=== PATIENT | male | born 1965 | race Caucasian/White ===

== ENCOUNTER 2018-04-24 11:49 | Emergency (ER) | payer MEDICARE, MEDICAID ==
[~2018-04-24 11:49] MED LIST: ACYC-1 PO; AZIT-1 PO; HYDR-653 PO; HYDR2TAB74 PO; IBUP800T37 PO; LOR5/325 PO; METH-543 PO; NO ROUTINE MEDS; ONDA4TAB PO; OXYC-865 PO; PRED-1 PO; PROM-110 PO; TERB250T63 PO; ZOLP-1 PO; [UNRECOGNIZED DRUG - CODE] TP
--- NOTE | 2018-04-24 12:05 | ER Report ---
History and Physical Time Seen By MD: 12:02 Hx. of Stated Complaint: GOING THROUG WITH DRAWAL HPI/ROS CHIEF COMPLAINT: Alcohol detox HISTORY OF PRESENT ILLNESS: This is a 53-year-old male who presents to the emergency department for alcohol detox. Patient states that he's had a long history of alcohol consumption however over the last 3 years he's been drinking up to 12 shooters of 100 proof alcohol daily. Patient states that his last drink was yesterday morning, he is having shakes, severe epigastric and chest pain. Intermittent nausea no vomiting. Patient has never sought treatment before, he is considering treatment now. He states that "this is got a stop", patient states that he is ready to stop drinking is very tearful while I'm talking to him. He's been taking baking soda daily to help with the epigastric pain, however over the last couple of days his been very severe. No fevers or chills. No diarrhea. No rashes. No headaches. REVIEW OF SYSTEMS: Constitutional: No fever, no chills. Eyes: No discharge. ENT: No sore throat. Cardiovascular: As above. Respiratory: No cough, no shortness of breath. Gastrointestinal: As above. Genitourinary: No hematuria. Musculoskeletal: No back pain. Skin: No rashes. Neurological: No headache. Allergies: Coded Allergies: Sulfa (Sulfonamide Antibiotics) (Verified Allergy, Severe, HIVES AND THROAT CLOSES, 04/24/18) Home Meds Active Scripts Pantoprazole Sodium (PANTOPRAZOLE SODIUM) 40 Mg Tablet.dr, 40 MG PO QDAY, #30 TAB.SR Prov:ELISHA HORTA [facility] 04/24/18 Lorazepam (ATIVAN) 0.5 Mg Tablet, 0.5 MG PO Q4-6H, #12 TAB 0 Refills Prov:ELISHA HORTA [facility] 04/24/18 Sucralfate (CARAFATE) 1 Gm Tablet, 1 GM PO QID, #60 TAB 0 Refills Take before meals and at bedtime. Crush the tablet and mix with water before taking. Prov:ELISHA HORTA [facility] 04/24/18 Reported Medications Lisinopril (LISINOPRIL) 10 Mg Tablet, 10 MG PO QDAY, TAB 04/24/18 Discontinued Scripts Ondansetron (ZOFRAN ODT) 4 Mg Tab.rapdis, 4 MG PO Q6H PRN for NAUSEA/VOMITING, #20 TAB.TING 0 Refills Prov:PA FRENCH MD 08/11/16 Hydrocodone Bit/Acetaminophen (HYDROCODON-ACETAMINOPHEN 5-325) 1 Each Tablet, 1 EACH PO Q4H PRN for PAIN, #12 TAB 0 Refills Prov:PA FRENCH MD 08/11/16 Past Medical/Surgical History The patient has a past medical and surgical history of hypertension, smokes, pne umonia, TB exposure, GERD, arthritis, wears glasses, anxiety, depression, hernia repair, excision of a cyst on the right hand, left shoulder surgery. Alcoholism. Reviewed Nurses Notes: Yes Hx Smoking: Yes (1.5 PPD X 30 YRS ) Smoking Status: Heavy Tobacco Smoker Exposure to Second Hand Smoke?: Yes Hx Substance Use Disorder: No Hx Alcohol Use: Yes Constitutional Vital Sign - Last 24 Hours 04/24/18 04/24/18 04/24/18 04/24/18 11:49 12:01 12:01 12:19 Temp 97.8 Pulse 65 65 74 Resp 18 14 16 B/P (MAP) 159/113 (128) 159/113 Pulse Ox 92 95 89 04/24/18 04/24/18 04/24/18 04/24/18 12:47 12:49 13:00 13:19 Pulse 55 67 Resp 10 14 B/P (MAP) 145/103 (117) 152/101 (118) Pulse Ox 90 90 04/24/18 04/24/18 04/24/18 04/24/18 13:30 13:35 14:05 14:11 Pulse 56 58 Resp 8 17 B/P (MAP) 151/98 (115) 151/98 (115) Pulse Ox 90 90 04/24/18 04/24/18 04/24/18 14:16 14:30 14:46 Pulse 98 80 Resp 12 15 B/P (MAP) 155/95 (115) Physical Exam General Appearance: The patient is alert, has no immediate need for airway protection and no signs of toxicity, large tremors, while I'm in the exam room patient suddenly stands up grabbing his chest saying that he has severe acid reflux. Eyes: Pupils equal and round no pallor or injection. ENT, Mouth: Mucous membranes are moist. Respiratory: There are no retractions, lungs are clear to auscultation. Cardiovascular: Regular rate and rhythm, no murmurs, clicks or rubs. Gastrointestinal: Abdomen is soft, discomfort to the epigastrium, no masses, bowel sounds normal. Neurological: Alert and oriented 4. Moving all extremities. Following all commands. No focal neuro deficits. Skin: Warm and dry, no rashes. Musculoskeletal: Neck is supple non tender. Extremities are nontender, nonswollen and have full range of motion. DIFFERENTIAL DIAGNOSIS: After history and physical exam differential diagnosis was considered for chest pain including but not limited to myocardial ischemia, anxiety, alcohol detox, pericarditis pulmonary embolus, chest wall pain, pleural inflammation and pulmonary infectious causes. Medical Decision Making Data Points Result Diagram: 04/24/18 1234 04/24/18 1234 Laboratory Hematology Test 04/24/18 12:34 04/24/18 14:13 Red Blood Count 5.07 M/uL (4.00-5.60) Mean Corpuscular Volume 99.0 fL (80.0-96.0) Mean Corpuscular Hemoglobin 34.5 pg (26.0-33.0) Mean Corpuscular Hemoglobin Concent 34.8 g/dL (32.0-36.0) Red Cell Distribution Width 14.3 % (11.5-14.5) Mean Platelet Volume 7.3 fL (7.2-11.1) Neutrophils (%) (Auto) 80.0 % (39.4-72.5) Lymphocytes (%) (Auto) 11.1 % (17.6-49.6) Monocytes (%) (Auto) 8.3 % (4.1-12.4) Eosinophils (%) (Auto) 0.2 % (0.4-6.7) Basophils (%) (Auto) 0.4 % (0.3-1.4) Nucleated RBC Relative Count (auto) 0.0 /100WBC Neutrophils # (Auto) 5.8 K/uL (2.0-7.4) Lymphocytes # (Auto) 0.8 K/uL (1.3-3.6) Monocytes # (Auto) 0.6 K/uL (0.3-1.0) Eosinophils # (Auto) 0.0 K/uL (0.0-0.5) Basophils # (Auto) 0.0 K/uL (0.0-0.1) Nucleated RBC Absolute Count (auto) 0.00 K/uL Sodium Level 137 mmol/L (137-145) Potassium Level 3.2 mmol/L (3.5-5.0) Chloride Level 99 mmol/L (98-107) Carbon Dioxide Level 31 mmol/L (22-30) Blood Urea Nitrogen 8 mg/dl (9-21) Creatinine 0.70 mg/dl (0.66-1.25) Glomerular Filtration Rate Calc > 60.0 Random Glucose 105 mg/dl (75-110) Calcium Level 9.2 mg/dl (8.4-10.2) Magnesium Level 1.4 mg/dl (1.7-2.2) Total Bilirubin 1.4 mg/dl (0.2-1.3) Aspartate Amino Transf (AST/SGOT) 68 U/L (0-35) Alanine Aminotransferase (ALT/SGPT) 62 U/L (0-56) Alkaline Phosphatase 64 U/L (0-126) Troponin I < 0.012 ng/ml Total Protein 7.4 g/dl (6.3-8.2) Albumin 4.3 g/dl (3.5-5.0) Thyroid Stimulating Hormone (TSH) 2.24 uIU/ml (0.46-4.68) Salicylates Level 13 mg/L Salicylate Last Dose Date unk Acetaminophen Level < 10 ug/ml Serum Alcohol < 10 mg/dl Urine Color Yellow Urine Clarity Clear Urine pH 8.0 pH (4.8-9.5) Urine Specific [place] 1.012 Urine Protein 30 mg/dL (NEGATIVE) Urine Glucose (UA) Negative mg/dL (NEGATIVE) Urine Ketones 20 mg/dL (NEGATIVE) Urine Blood Negative (NEGATIVE) Urine Nitrite Negative (NEGATIVE) Urine Bilirubin Negative (NEGATIVE) Urine Urobilinogen Negative mg/dL (0.2-1.9) Urine Leukocyte Esterase Negative (NEGATIVE) Urine RBC 1 /HPF (0-2/HPF) Urine WBC <1 /HPF (0-5/HPF) Urine Squamous Epithelial Cells None /LPF (</=FEW) Urine Bacteria Negative /HPF (NONE-FEW) Urine Mucus None /HPF (NONE-FEW) Urine Opiates Screen Negative Urine Barbiturates Screen Negative Ur Tricyclic Antidepressants Screen Negative Urine Phencyclidine Screen Negative Urine Amphetamines Screen Negative Urine Benzodiazepines Screen Negative Urine Cocaine Screen Negative Urine Cannabinoids Screen Positive Chemistry Test 04/24/18 12:34 04/24/18 14:13 White Blood Count 7.3 k/uL (4.5-11.0) Red Blood Count 5.07 M/uL (4.00-5.60) Hemoglobin 17.5 g/dL (14.0-18.0) Hematocrit 50.2 % (42.0-52.0) Mean Corpuscular Volume 99.0 fL (80.0-96.0) Mean Corpuscular Hemoglobin 34.5 pg (26.0-33.0) Mean Corpuscular Hemoglobin Concent 34.8 g/dL (32.0-36.0) Red Cell Distribution Width 14.3 % (11.5-14.5) Platelet Count 179 K/uL (150-450) Mean Platelet Volume 7.3 fL (7.2-11.1) Neutrophils (%) (Auto) 80.0 % (39.4-72.5) Lymphocytes (%) (Auto) 11.1 % (17.6-49.6) Monocytes (%) (Auto) 8.3 % (4.1-12.4) Eosinophils (%) (Auto) 0.2 % (0.4-6.7) Basophils (%) (Auto) 0.4 % (0.3-1.4) Nucleated RBC Relative Count (auto) 0.0 /100WBC Neutrophils # (Auto) 5.8 K/uL (2.0-7.4) Lymphocytes # (Auto) 0.8 K/uL (1.3-3.6) Monocytes # (Auto) 0.6 K/uL (0.3-1.0) Eosinophils # (Auto) 0.0 K/uL (0.0-0.5) Basophils # (Auto) 0.0 K/uL (0.0-0.1) Nucleated RBC Absolute Count (auto) 0.00 K/uL Glomerular Filtration Rate Calc > 60.0 Calcium Level 9.2 mg/dl (8.4-10.2) Magnesium Level 1.4 mg/dl (1.7-2.2) Total Bilirubin 1.4 mg/dl (0.2-1.3) Aspartate Amino Transf (AST/SGOT) 68 U/L (0-35) Alanine Aminotransferase (ALT/SGPT) 62 U/L (0-56) Alkaline Phosphatase 64 U/L (0-126) Troponin I < 0.012 ng/ml Total Protein 7.4 g/dl (6.3-8.2) Albumin 4.3 g/dl (3.5-5.0) Thyroid Stimulating Hormone (TSH) 2.24 uIU/ml (0.46-4.68) Salicylates Level 13 mg/L Salicylate Last Dose Date unk Acetaminophen Level < 10 ug/ml Serum Alcohol < 10 mg/dl Urine Color Yellow Urine Clarity Clear Urine pH 8.0 pH (4.8-9.5) Urine Specific [place] 1.012 Urine Protein 30 mg/dL (NEGATIVE) Urine Glucose (UA) Negative mg/dL (NEGATIVE) Urine Ketones 20 mg/dL (NEGATIVE) Urine Blood Negative (NEGATIVE) Urine Nitrite Negative (NEGATIVE) Urine Bilirubin Negative (NEGATIVE) Urine Urobilinogen Negative mg/dL (0.2-1.9) Urine Leukocyte Esterase Negative (NEGATIVE) Urine RBC 1 /HPF (0-2/HPF) Urine WBC <1 /HPF (0-5/HPF) Urine Squamous Epithelial Cells None /LPF (</=FEW) Urine Bacteria Negative /HPF (NONE-FEW) Urine Mucus None /HPF (NONE-FEW) Urine Opiates Screen Negative Urine Barbiturates Screen Negative Ur Tricyclic Antidepressants Screen Negative Urine Phencyclidine Screen Negative Urine Amphetamines Screen Negative Urine Benzodiazepines Screen Negative Urine Cocaine Screen Negative Urine Cannabinoids Screen Positive Toxicology Test 04/24/18 12:34 04/24/18 14:13 Salicylates Level 13 mg/L Salicylate Last Dose Date unk Acetaminophen Level < 10 ug/ml Serum Alcohol < 10 mg/dl Urine Opiates Screen Negative Urine Barbiturates Screen Negative Ur Tricyclic Antidepressants Screen Negative Urine Phencyclidine Screen Negative Urine Amphetamines Screen Negative Urine Benzodiazepines Screen Negative Urine Cocaine Screen Negative Urine Cannabinoids Screen Positive Urinalysis Test 04/24/18 14:13 Urine Color Yellow Urine Clarity Clear Urine pH 8.0 pH (4.8-9.5) Urine Specific [place] 1.012 Urine Protein 30 mg/dL (NEGATIVE) Urine Glucose (UA) Negative mg/dL (NEGATIVE) Urine Ketones 20 mg/dL (NEGATIVE) Urine Blood Negative (NEGATIVE) Urine Nitrite Negative (NEGATIVE) Urine Bilirubin Negative (NEGATIVE) Urine Urobilinogen Negative mg/dL (0.2-1.9) Urine Leukocyte Esterase Negative (NEGATIVE) Urine RBC 1 /HPF (0-2/HPF) Urine WBC <1 /HPF (0-5/HPF) Urine Squamous Epithelial Cells None /LPF (</=FEW) Urine Bacteria Negative /HPF (NONE-FEW) Urine Mucus None /HPF (NONE-FEW) EKG/Imaging EKG Interpretation 12 lead EKG: Time of EKG 1239. Rhythm: Normal sinus rhythm, ventricular rate 63 bpm. [place]: normal QRS: normal ST segments: No ST depression or elevation identified. No significant changes from the 04/11/2016 EKG. Imaging Location: [facility] [place] Patient: Jonnie Junior : 1965 Visit/Account:[id number] Date of Sevice: 04/24/2018 CHEST SINGLE AP Indication: chest pain Comparison: Chest x-ray 10/26/2015 Findings: Lungs: Clear. Mediastinum/pulmonary vasculature: Heart size and pulmonary vasculature are normal. Bones/soft tissues: Normal. IMPRESSION: Clear lungs. Report Dictated By: Kj Gonzalez at 04/24/2018 1:15 PM Report E-Signed By: Kj Gonzalez at 04/24/2018 1:16 PM [id number] ED Course/Re-evaluation Clinical Indication for ER IV: Hydration, IV Access ED Course The patient was admitted to a room. A history of physical obtained. Differential diagnoses were considered. An IV was started. A CBC, CMP, psych panel, UA and tox screen were obtained. A banana bag was given. Patient was given 2 mg IV Ativan, 40 mg IV Protonix, and a GI cocktail. CBC showing MCV 99, MCH 34.5, chemistry showing potassium 3.2, magnesium 1.4, AST 68, ALT 62. Negative troponin. Negative tox screen, negative urine. Negative serum alcohol. EKG showing normal sinus rhythm, negative chest x-ray. On the patient tonight had a couple of lengthy discussions on going to the behavioral health unit, my recommendation was to go to the unit, they could provide him with some counseling services as well as help with medication should he have any withdrawal symptoms. I did have a psychology tech come down and speak with the patient as well, ultimately the patient elected not to go to the behavioral health unit. He was not suicidal or homicidal. I did strongly recommend the patient follows up with counseling services and his primary care provider as soon as possible. Patient was also given sucralfate, Ativan to use as needed, very short-term, as well as Protonix. I did recommend that the patient follows up with Dr. Rothman at some point for a discussion on and upper endoscopy looking for ulcers. The patient exposed understanding and was discharged home. Patient states he is feeling much better at this time. No other questions or concerns. Decision to Disposition Date: Apr 24, 2018 Decision to Disposition Time: 14:48 Depart Departure Latest Vital Signs Vital Signs Date Time Temp Pulse Resp B/P (MAP) Pulse Ox O2 Delivery O2 Flow Rate FiO2 04/24/18 14:46 80 15 04/24/18 14:30 155/95 (115) 04/24/18 14:05 90 04/24/18 12:01 97.8 Impression: Primary Impression: Acute epigastric pain Additional Impression: Alcohol abuse Condition: Improved Disposition: HOME OR SELF-CARE Referrals: VON NICHOLSON (PCP) GEORGE HALL MD [facility] Pantoprazole Sodium (PANTOPRAZOLE SODIUM) 40 Mg Tablet. 40 MG PO QDAY, #30 TAB.SR Prov: [facility] 04/24/18 Lorazepam (ATIVAN) 0.5 Mg Tablet 0.5 MG PO Q4-6H, #12 TAB 0 Refills Prov: [facility] 04/24/18 Sucralfate (CARAFATE) 1 Gm Tablet 1 GM PO QID, #60 TAB 0 Refills Take before meals and at bedtime. Crush the tablet and mix with water before taking. Prov: [facility] 04/24/18 Patient Instructions: Abuse of Alcohol (ED), Alcohol Dependence (GEN), Alcohol Withdrawal (DC) Additional Instructions: Please take the information that was provided to you by the Behavioral health tech and follow up with a counselor within 1-3 days for reevaluation and custodial treatment of your alcohol dependence. If you feel that you are unable to manage your withdrawal symptoms and anxiety at home, please return to the ED for reevaluation. Drink plenty of water. Get plenty of rest. Avoid any sort of acholic drink. Take the Carafate for possible ulcerations due to chronic alcohol consumption, ,this is only short term, for custodial treatment and definitive diagnosis and possible endoscopy, please follow up with Dr. Hall. Take the Ativan as needed for withdrawal symptoms, BUT you cannot mix with alcohol. Follow up with your PCP within one week for reevaluation. Problem Qualifiers ELISHA HORTA [facility] Apr 24, 2018 12:05
[2018-04-24] MEDS ORDERED: THIAMINE HCL(*) 200 MG/2 ML IN 100 MG, FOLIC ACID(*) 50 MG/10 ML INJ 1 MG, MULTIVITAMIN... IV ONE (12:16)
[2018-04-24] MEDS ORDERED: PANTOPRAZOLE SOD 40 MG IV VIAL IVP ONE (12:20)
[2018-04-24] MEDS ORDERED: MAG HYD/AL HYD/SIMETH 30ML UDC PO ONE (12:20)
[2018-04-24] MEDS ORDERED: LORazepam 2 MG/ML VIAL IVP ONE (12:20)
[2018-04-24] MEDS ORDERED: LIDOCAINE 2% VISC SLN 15ML UDC PO ONE (12:20)
--- NOTE | 2018-04-24 12:48 | EKG ---
[place] [facility] [place] NAME: SANGEETA LEWIS : [id number] MR: [id number] V: [id number] EXAM DATE: ORDERING PHYSICIAN: ELISHA HORTA TECHNOLOGIST: KEENAN Joseph Reason : ETOH Blood Pressure : / mmHG Vent. Rate : 063 BPM Atrial Rate : 063 BPM P-R Int : 144 ms QRS Dur : 078 ms QT Int : 472 ms P-R-T Axes : 028 039 043 degrees QTc Int : 483 ms Sinus rhythm No acute appearing ST-T findings Prolonged QT Abnormal ECG Confirmed by CECILE BURGESS ([id number]) on 04/24/2018 4:06:52 PM Referred By: Confirmed By:CECILE BURGESS
[2018-04-24 12:55] LABS: PLATELET COUNT, AUTOMATED 179 K/uL (150-450)
--- NOTE | 2018-04-24 13:23 | RADIOLOGY IMAGING REPORT ---
FACILITY: [facility] - [place] PATIENT NAME: Jonnie Junior : 1965 MR: [id number] V: [id number] EXAM DATE: ORDERING PHYSICIAN: ELISHA HORTA TECHNOLOGIST: [place] [facility] [place]: Jonnie Junior : 1965 Visit/Account:[id number] Date of Sevice: 04/24/2018 CHEST SINGLE AP Indication: chest pain Comparison: Chest x-ray 10/26/2015 Findings: Lungs: Clear. Mediastinum/pulmonary vasculature: Heart size and pulmonary vasculature are normal. Bones/soft tissues: Normal. IMPRESSION: Clear lungs. Report Dictated By: Kj Gonzalez at 04/24/2018 1:15 PM Report E-Signed By: Kj Gonzalez at 04/24/2018 1:16 PM [id number]
[2018-04-24] MEDS ORDERED: LISI-362 PO (14:20)
[2018-04-24 14:30] VITALS: BP 155/95
[2018-04-24] MEDS ORDERED: PANT40TA65 PO (14:42)
[2018-04-24] MEDS ORDERED: SUCR1TAB85 PO (14:42)
[2018-04-24] MEDS ORDERED: LORA-1455 PO (14:42)
== END 2018-04-24 15:18 | disposition home or self-care (01) ==
LOC: ER 11:58
DX: R10.13 Epigastric pain (principal); F10.20 Alcohol dependence, uncomplicated
CPT/HCPCS: 71045; 80305; 81001; 83735; 84443; 84484; 85025; 93005; 96365; 96366; 96375; 99284; A9270; C9113; G0480; J2060; J3411; J3475; J7030; 80320; 80329; 82040; 82247; 82310; 82374; 82435; 82565; 82947; 84075; 84132; 84155; 84295; 84450; 84460; 84520

== ENCOUNTER 2018-04-27 14:14 | Emergency (ER) | payer MEDICARE, MEDICAID ==
[~2018-04-27 14:14] MED LIST changes: +LISI-362 PO; +LORA-1455 PO; +PANT40TA65 PO; +SUCR1TAB85 PO
--- NOTE | 2018-04-27 14:18 | ER Report ---
History and Physical Time Seen By MD: 14:17 HPI/ROS CHIEF COMPLAINT: Alcohol detox HISTORY OF PRESENT ILLNESS: This is a 53-year-old male who presents to the emergency department for alcohol detox. The patient was in the emergency department 3 days ago pushing to detox, we did provide him with medications to his IV which did seem to calm him down, helps with his shakes and his epigastric pain. Ultimately he decided at that point he would like to go home and try to follow up with the information was provided. He states he was unable to do so. States Monday he had several shooters of 100 proof alcohol in addition to this he had about a pint of vodka. When he woke the next day he states he did not feel very well MY decided that he wanted to come back to the ER for admission to the behavioral health unit to help him with alcohol detox. Patient arrives alert and oriented, interacting well. Heart rate in the 120s, he is shaky, cheeks are flushed. He denies fevers or chills. No hallucinations. No chest pain or shortness of breath. He does however have this underlying epigastric pain that he's had for quite some time secondary to alcohol consumption. REVIEW OF SYSTEMS: Constitutional: No fever, no chills. Eyes: No discharge. ENT: No sore throat. Cardiovascular: No chest pain, no palpitations. Respiratory: No cough, no shortness of breath. Gastrointestinal: As above. Genitourinary: No hematuria. Musculoskeletal: No back pain. Skin: No rashes. Neurological: No headache. Psych: As above. Allergies: Coded Allergies: Sulfa (Sulfonamide Antibiotics) (Verified Allergy, Severe, HIVES AND THROAT CLOSES, 04/27/18) Home Meds Active Scripts Pantoprazole Sodium (PANTOPRAZOLE SODIUM) 40 Mg Tablet.dr, 40 MG PO QDAY, #30 TAB.SR Prov:ELISHA HORTA-USMAN 04/24/18 Lorazepam (ATIVAN) 0.5 Mg Tablet, 0.5 MG PO Q4-6H, #12 TAB 0 Refills Prov:ELISHA HORTA 04/24/18 Sucralfate (CARAFATE) 1 Gm Tablet, 1 GM PO QID, #60 TAB 0 Refills Take before meals and at bedtime. Crush the tablet and mix with water before taking. Prov:ELISHA HORTA [employer]OMIST-BC 04/24/18 Reported Medications Lisinopril (LISINOPRIL) 10 Mg Tablet, 10 MG PO QDAY, TAB 04/24/18 Discontinued Scripts Ondansetron (ZOFRAN ODT) 4 Mg Tab.rapdis, 4 MG PO Q6H PRN for NAUSEA/VOMITING, #20 TAB.TING 0 Refills Prov:PA FRENCH MD 08/11/16 Hydrocodone Bit/Acetaminophen (HYDROCODON-ACETAMINOPHEN 5-325) 1 Each Tablet, 1 EACH PO Q4H PRN for PAIN, #12 TAB 0 Refills Prov:PA FRENCH MD 08/11/16 Past Medical/Surgical History The patient has a past medical and surgical history of hypertension, smokes, pneumonia, TB exposure, GERD, arthritis, wears glasses, anxiety, depression, hernia repair, excision of a cyst on the right hand, left shoulder surgery. Alcoholism. Reviewed Nurses Notes: Yes Hx Smoking: Yes (1.5 PPD X 30 YRS ) Smoking Status: Heavy Tobacco Smoker Exposure to Second Hand Smoke?: Yes Hx Substance Use Disorder: No Hx Alcohol Use: Yes Constitutional Vital Sign - Last 24 Hours 04/27/18 04/27/18 04/27/18 04/27/18 14:14 14:20 14:21 14:30 Temp 99.1 Pulse 127 120 Resp 11 B/P (MAP) 148/104 (119) 148/104 142/88 (106) Pulse Ox 89 90 O2 Delivery Room Air 04/27/18 04/27/18 04/27/18 04/27/18 14:44 15:00 15:05 15:29 Pulse 112 103 B/P (MAP) 141/101 (114) 144/101 (115) Pulse Ox 93 92 04/27/18 04/27/18 04/27/18 04/27/18 15:35 15:40 16:00 16:10 Pulse 101 93 105 B/P (MAP) 143/100 (114) Pulse Ox 91 91 92 04/27/18 04/27/18 16:15 17:14 Pulse 97 100 Resp 14 B/P (MAP) 144/99 (114) Pulse Ox 90 90 O2 Delivery Room Air Physical Exam General Appearance: The patient is alert, has no immediate need for airway protection and no signs of toxicity, shaky. Eyes: Pupils equal and round no pallor or injection. ENT, Mouth: Mucous membranes are moist. Respiratory: There are no retractions, lungs are clear to auscultation. Cardiovascular: Regular rate and rhythm. Gastrointestinal: Abdomen is soft and non tender, no masses, bowel sounds normal. Neurological: Alert and oriented 4. Moving all extremities. Following all commands. No focal neuro deficits. Skin: Warm and dry, no rashes. Cheeks are flushed. Musculoskeletal: Neck is supple non tender. Extremities are nontender, nonswollen and have full range of motion. DIFFERENTIAL DIAGNOSIS: After history and physical exam differential diagnosis was considered for alcohol detox. Medical Decision Making Data Points Result Diagram: 04/27/18 1439 04/27/18 1439 Laboratory Hematology Test 04/27/18 14:39 04/27/18 15:06 04/27/18 15:30 Red Blood Count 4.99 M/uL (4.00-5.60) Mean Corpuscular Volume 98.8 fL (80.0-96.0) Mean Corpuscular Hemoglobin 34.2 pg (26.0-33.0) Mean Corpuscular Hemoglobin Concent 34.7 g/dL (32.0-36.0) Red Cell Distribution Width 14.1 % (11.5-14.5) Mean Platelet Volume 6.9 fL (7.2-11.1) Neutrophils (%) (Auto) 81.7 % (39.4-72.5) Lymphocytes (%) (Auto) 8.1 % (17.6-49.6) Monocytes (%) (Auto) 8.9 % (4.1-12.4) Eosinophils (%) (Auto) 0.4 % (0.4-6.7) Basophils (%) (Auto) 0.9 % (0.3-1.4) Nucleated RBC Relative Count (auto) 0.1 /100WBC Neutrophils # (Auto) 6.8 K/uL (2.0-7.4) Lymphocytes # (Auto) 0.7 K/uL (1.3-3.6) Monocytes # (Auto) 0.7 K/uL (0.3-1.0) Eosinophils # (Auto) 0.0 K/uL (0.0-0.5) Basophils # (Auto) 0.1 K/uL (0.0-0.1) Nucleated RBC Absolute Count (auto) 0.01 K/uL Sodium Level 135 mmol/L (137-145) Potassium Level 3.3 mmol/L (3.5-5.0) Chloride Level 97 mmol/L (98-107) Carbon Dioxide Level 29 mmol/L (22-30) Blood Urea Nitrogen 19 mg/dl (9-21) Creatinine 0.90 mg/dl (0.66-1.25) Glomerular Filtration Rate Calc > 60.0 Random Glucose 112 mg/dl (75-110) Calcium Level 8.6 mg/dl (8.4-10.2) Magnesium Level 1.7 mg/dl (1.7-2.2) Total Bilirubin 1.5 mg/dl (0.2-1.3) Aspartate Amino Transf (AST/SGOT) 55 U/L (0-35) Alanine Aminotransferase (ALT/SGPT) 69 U/L (0-56) Alkaline Phosphatase 53 U/L (0-126) Total Protein 6.2 g/dl (6.3-8.2) Albumin 3.5 g/dl (3.5-5.0) Salicylates Level < 10 mg/L Salicylate Last Dose Date unk Acetaminophen Level < 10 ug/ml Serum Alcohol < 10 mg/dl Urine Color Arina Urine Clarity Slightly-cloudy Urine pH 5.0 pH (4.8-9.5) Urine Specific Hayden 1.026 Urine Protein 30 mg/dL (NEGATIVE) Urine Glucose (UA) Negative mg/dL (NEGATIVE) Urine Ketones 20 mg/dL (NEGATIVE) Urine Blood Moderate (NEGATIVE) Urine Nitrite Negative (NEGATIVE) Urine Bilirubin Negative (NEGATIVE) Urine Urobilinogen 2.0 mg/dL (0.2-1.9) Urine Leukocyte Esterase Negative (NEGATIVE) Urine RBC 9 /HPF (0-2/HPF) Urine WBC 2 /HPF (0-5/HPF) Urine Squamous Epithelial Cells Few /LPF (</=FEW) Urine Bacteria Negative /HPF (NONE-FEW) Urine Hyaline Casts Few /LPF (NONE-FEW) Urine Mucus Few /HPF (NONE-FEW) Urine Opiates Screen Negative Urine Barbiturates Screen Negative Ur Tricyclic Antidepressants Screen Negative Urine Phencyclidine Screen Negative Urine Amphetamines Screen Negative Urine Benzodiazepines Screen Positive Urine Cocaine Screen Negative Urine Cannabinoids Screen Positive Chemistry Test 04/27/18 14:39 04/27/18 15:06 04/27/18 15:30 White Blood Count 8.3 k/uL (4.5-11.0) Red Blood Count 4.99 M/uL (4.00-5.60) Hemoglobin 17.1 g/dL (14.0-18.0) Hematocrit 49.3 % (42.0-52.0) Mean Corpuscular Volume 98.8 fL (80.0-96.0) Mean Corpuscular Hemoglobin 34.2 pg (26.0-33.0) Mean Corpuscular Hemoglobin Concent 34.7 g/dL (32.0-36.0) Red Cell Distribution Width 14.1 % (11.5-14.5) Platelet Count 155 K/uL (150-450) Mean Platelet Volume 6.9 fL (7.2-11.1) Neutrophils (%) (Auto) 81.7 % (39.4-72.5) Lymphocytes (%) (Auto) 8.1 % (17.6-49.6) Monocytes (%) (Auto) 8.9 % (4.1-12.4) Eosinophils (%) (Auto) 0.4 % (0.4-6.7) Basophils (%) (Auto) 0.9 % (0.3-1.4) Nucleated RBC Relative Count (auto) 0.1 /100WBC Neutrophils # (Auto) 6.8 K/uL (2.0-7.4) Lymphocytes # (Auto) 0.7 K/uL (1.3-3.6) Monocytes # (Auto) 0.7 K/uL (0.3-1.0) Eosinophils # (Auto) 0.0 K/uL (0.0-0.5) Basophils # (Auto) 0.1 K/uL (0.0-0.1) Nucleated RBC Absolute Count (auto) 0.01 K/uL Glomerular Filtration Rate Calc > 60.0 Calcium Level 8.6 mg/dl (8.4-10.2) Magnesium Level 1.7 mg/dl (1.7-2.2) Total Bilirubin 1.5 mg/dl (0.2-1.3) Aspartate Amino Transf (AST/SGOT) 55 U/L (0-35) Alanine Aminotransferase (ALT/SGPT) 69 U/L (0-56) Alkaline Phosphatase 53 U/L (0-126) Total Protein 6.2 g/dl (6.3-8.2) Albumin 3.5 g/dl (3.5-5.0) Salicylates Level < 10 mg/L Salicylate Last Dose Date unk Acetaminophen Level < 10 ug/ml Serum Alcohol < 10 mg/dl Urine Color Arina Urine Clarity Slightly-cloudy Urine pH 5.0 pH (4.8-9.5) Urine Specific Hayden 1.026 Urine Protein 30 mg/dL (NEGATIVE) Urine Glucose (UA) Negative mg/dL (NEGATIVE) Urine Ketones 20 mg/dL (NEGATIVE) Urine Blood Moderate (NEGATIVE) Urine Nitrite Negative (NEGATIVE) Urine Bilirubin Negative (NEGATIVE) Urine Urobilinogen 2.0 mg/dL (0.2-1.9) Urine Leukocyte Esterase Negative (NEGATIVE) Urine RBC 9 /HPF (0-2/HPF) Urine WBC 2 /HPF (0-5/HPF) Urine Squamous Epithelial Cells Few /LPF (</=FEW) Urine Bacteria Negative /HPF (NONE-FEW) Urine Hyaline Casts Few /LPF (NONE-FEW) Urine Mucus Few /HPF (NONE-FEW) Urine Opiates Screen Negative Urine Barbiturates Screen Negative Ur Tricyclic Antidepressants Screen Negative Urine Phencyclidine Screen Negative Urine Amphetamines Screen Negative Urine Benzodiazepines Screen Positive Urine Cocaine Screen Negative Urine Cannabinoids Screen Positive Toxicology Test 04/27/18 14:39 04/27/18 15:30 Salicylates Level < 10 mg/L Salicylate Last Dose Date unk Acetaminophen Level < 10 ug/ml Serum Alcohol < 10 mg/dl Urine Opiates Screen Negative Urine Barbiturates Screen Negative Ur Tricyclic Antidepressants Screen Negative Urine Phencyclidine Screen Negative Urine Amphetamines Screen Negative Urine Benzodiazepines Screen Positive Urine Cocaine Screen Negative Urine Cannabinoids Screen Positive Urinalysis Test 04/27/18 15:30 Urine Color Arina Urine Clarity Slightly-cloudy Urine pH 5.0 pH (4.8-9.5) Urine Specific Hayden 1.026 Urine Protein 30 mg/dL (NEGATIVE) Urine Glucose (UA) Negative mg/dL (NEGATIVE) Urine Ketones 20 mg/dL (NEGATIVE) Urine Blood Moderate (NEGATIVE) Urine Nitrite Negative (NEGATIVE) Urine Bilirubin Negative (NEGATIVE) Urine Urobilinogen 2.0 mg/dL (0.2-1.9) Urine Leukocyte Esterase Negative (NEGATIVE) Urine RBC 9 /HPF (0-2/HPF) Urine WBC 2 /HPF (0-5/HPF) Urine Squamous Epithelial Cells Few /LPF (</=FEW) Urine Bacteria Negative /HPF (NONE-FEW) Urine Hyaline Casts Few /LPF (NONE-FEW) Urine Mucus Few /HPF (NONE-FEW) ED Course/Re-evaluation Clinical Indication for ER IV: Hydration, IV Access ED Course The patient was admitted to a room. A history and physical were obtained. Differential diagnoses were considered. An IV was started. A CBC, CMP and psych panel were collected. A UA and tox screen were collected. A banana bag was given. 0.5 IV Ativan was given. A GI cocktail. And 40 mg by mouth Protonix.MCV 98.8, MCH 34.2, percent neutrophils 81.7, sodium 135, potassium 3.3, AST 55, ALT 69, positive for cannabis, positive for benzos however this is probably after the Ativan was given, UA showing concentrated urine, with ketones and protein otherwise unremarkable. I did speak with Dr. Badillo from the behavioral health unit, he is accepted the patient into his unit for detox. Patient has R he signed in voluntarily, has changed into his scrubs. Patient is agreeable with this plan of care. No other questions or concerns at this time. 04/27/2018 4:00:11 pm I did speak with Dr. Badillo, he's accepted the patient into his services, patient will be admitted to the behavioral health unit for alcohol detox. Decision to Disposition Date: Apr 27, 2018 Decision to Disposition Time: 16:00 Depart Departure Latest Vital Signs Vital Signs Date Time Temp Pulse Resp B/P (MAP) Pulse Ox O2 Delivery O2 Flow Rate FiO2 04/27/18 17:14 100 14 144/99 (114) 90 Room Air 04/27/18 14:21 99.1 Impression: Primary Impression: Alcohol abuse Additional Impression: Alcoholic gastritis Condition: Improved Disposition: XFER TO [facility] Referrals: VON NICHOLSON (PCP) Problem Qualifiers Additional Impression: Alcoholic gastritis Chronicity: chronic Gastritis bleeding: without bleeding Qualified Codes: K29.20 - Alcoholic gastritis without bleeding ELISHA HORTA [facility]- Apr 27, 2018 14:18
[2018-04-27] MEDS ORDERED: THIAMINE HCL(*) 200 MG/2 ML IN 100 MG, FOLIC ACID(*) 50 MG/10 ML INJ 1 MG, MULTIVITAMIN... IV ONE (14:30)
[2018-04-27] MEDS ORDERED: LORazepam 2 MG/ML VIAL IVP ONE (14:30)
[2018-04-27 14:50] LABS: PLATELET COUNT, AUTOMATED 155 K/uL (150-450)
[2018-04-27] MEDS ORDERED: LIDOCAINE 2% VISC SLN 15ML UDC PO ONE (15:00)
[2018-04-27] MEDS ORDERED: MAG HYD/AL HYD/SIMETH 30ML UDC PO ONE (15:00)
[2018-04-27] MEDS ORDERED: PANTOPRAZOLE SOD 40 MG TABEC PO ONE (16:10)
[2018-04-27 17:14] VITALS: BP 144/99
[2018-04-28] MEDS ORDERED: VALA500T63 PO (05:29)
[2018-04-28] MEDS ORDERED: AMLO-111 PO (05:29)
== END 2018-04-27 17:15 ==
LOC: ER 14:20
DX: F10.20 Alcohol dependence, uncomplicated (principal); F12.10 Cannabis abuse, uncomplicated; K29.20 Alcoholic gastritis without bleeding
CPT/HCPCS: 36415; 80305; 81001; 83735; 84443; 85025; 96365; 96366; 96375; 99284; A9270; G0480; J2060; J3411; J7030; 80320; 80329; 82040; 82247; 82310; 82374; 82435; 82565; 82947; 84075; 84132; 84155; 84295; 84450; 84460; 84520

== ENCOUNTER 2018-04-27 16:52 | Inpatient (IN) | payer MEDICARE, MEDICAID ==
[~2018-04-27] VITALS: Ht 185.4 cm; Wt 99.8 kg
[2018-04-27] MEDS ORDERED: MAG HYD/AL HYD/SIMETH 30ML UDC PO PRN (17:15)
[2018-04-27] MEDS ORDERED: NICOTINE POLACRILEX 2 MG GUM PO PRN (17:15)
[2018-04-27 17:28] VITALS: BP 148/100
[2018-04-27] MEDS: DIAZEPAM 10 MG TAB PO PRN (17:44)
[2018-04-27 19:50] VITALS: BP 148/92
[2018-04-28 01:51] VITALS: BP 148/104
[2018-04-28] MEDS: NICOTINE 21 MG/24 HR PATCH TD SCH ×2 (02:02→08:31)
[2018-04-28] MEDS: DIAZEPAM 10 MG TAB PO PRN ×4 (02:02→21:03)
[2018-04-28] MEDS ORDERED: AMLO-111 PO (05:29)
[2018-04-28] MEDS ORDERED: VALA500T63 PO (05:29)
[2018-04-28 06:43] VITALS: BP 128/102
[2018-04-28] MEDS: PANTOPRAZOLE SOD 40 MG TABEC PO SCH (08:30)
[2018-04-28] MEDS: THIAMINE HCL 100 MG TAB PO SCH (08:30)
[2018-04-28] MEDS: MULTIVITAMINS TAB PO SCH (08:31)
[2018-04-28] MEDS: FOLIC ACID 1 MG TAB PO SCH (08:31)
[2018-04-28] MEDS: amLODIPine BESYL(*) 5 MG TAB PO SCH (08:31)
[2018-04-28] MEDS ORDERED: valACYclovir HCL 500 MG TAB PO SCH (09:00)
[2018-04-28 09:55] VITALS: BP 154/96
[2018-04-28] MEDS ORDERED: INFLUENZA VIRUS VAC 0.5ML SYR IM ONLY ONE (11:35)
[2018-04-28 16:31] VITALS: BP 152/102
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
[2018-04-28 21:48] VITALS: BP 148/98
[2018-04-29 03:58] VITALS: BP 130/96
[2018-04-29] MEDS: PANTOPRAZOLE SOD 40 MG TABEC PO SCH (08:10)
[2018-04-29] MEDS: THIAMINE HCL 100 MG TAB PO SCH (08:10)
[2018-04-29] MEDS: amLODIPine BESYL(*) 5 MG TAB PO SCH (08:10)
[2018-04-29] MEDS: FOLIC ACID 1 MG TAB PO SCH (08:10)
[2018-04-29] MEDS: MULTIVITAMINS TAB PO SCH (08:11)
[2018-04-29] MEDS: DIAZEPAM 10 MG TAB PO PRN (08:11)
[2018-04-29] MEDS: NICOTINE 21 MG/24 HR PATCH TD SCH (08:13)
[2018-04-29 08:35] VITALS: BP 142/98
[2018-04-29] MEDS ORDERED: valACYclovir HCL 500 MG TAB PO SCH (09:00)
[2018-04-29] MEDS ORDERED: FOLI-68 PO (09:42)
[2018-04-29] MEDS ORDERED: AMLO-101 PO (09:43)
[2018-04-29] MEDS ORDERED: NICO-218 TD (09:43)
[2018-04-29] MEDS ORDERED: MULT-859 PO (09:44)
[2018-04-29] MEDS ORDERED: THIA100T62 PO (09:44)
--- NOTE | 2018-04-30 03:51 | SCHAAF DISCHARGE ---
DATE OF ADMISSION: April 27, 2018 DATE OF DISCHARGE: April 29, 2018 ATTENDING PHYSICIAN Giovanni Badillo MD Patient was seen at approximately 0830 hours on 29 April 2018 for note concerning this dictation. FINAL DIAGNOSES 1. Alcohol withdrawal, considered complete. 2. Alcohol use disorder, severe. 3. Social stressors related to alcohol use. 4. History of anxiety and depression per patient. REASON FOR ADMISSION This is a cooperative 53-year-old male admitted voluntarily for alcohol withdrawal. Patient notably was seen on April 24, 2018, in emergency room and was attempting to detox at home after that on low-dose Ativan. Patient, however, returning to the ER April 27, 2018, for further help on an inpatient status. Please see history and physical for full details. Patient's alcohol withdrawal was treated to completion. Patient very thankful, interacting well with other staff, other patients, and doing well at time of discharge. Alcohol withdrawal considered complete. PHYSICAL EXAMINATION Please see emergency room note. Notable for 53-year-old male in no acute medical distress. Vital signs at the time of admission: Temperature 99.1, pulse 120, respiratory rate 11, blood pressure 148/104 and pulse oximetry 90% on room air. Vital signs at the time of discharge: Temperature 97.3, pulse 87, respiratory rate 14, blood pressure 130/96 and pulse oximetry 94% on room air. LABORATORY DATA CBC notable for an MCV elevated at 98.8, MCH 34.2 and elevated. Chemistry panel notable for sodium low at 135, potassium 3.3 and low, total bilirubin elevated at 1.5, AST 55 and elevated, and ALT 69 and elevated. Toxicology screen positive for benzodiazepines, which the patient is prescribed; notably positive for cannabis as well; negative for any serum alcohol at the time of admission. Urinalysis was overall unremarkable. MENTAL STATUS EXAMINATION AT TIME OF DISCHARGE GENERAL APPEARANCE, BEHAVIOR AND ATTITUDE: This is a polite, cooperative 53-year-old male making good eye contact. No bizarre mannerisms or tics. Patient interacting well. No periods of tearfulness. No psychomotor agitation or retardation. SPEECH: Within normal limits. Regular rate, rhythm, volume and tone. MOOD: Described as good. . AFFECT: Full and mood-congruent. THOUGHT PROCESSES: Goal-directed and logical. Patient intends to go to [facility] upon discharge. No loose associations or flight of ideas. THOUGHT CONTENT: Free of auditory or visual hallucinations, ideas of reference, thought broadcastings, delusions, obsessions or compulsions, and patient adamantly denying suicidal or homicidal ideation. SENSORIUM: Clear. COGNITION: Alert and oriented to person, place, time and situation. MEMORY: Immediate, recent and remote estimated intact. INTELLIGENCE: Average, based on interview. INSIGHT AND JUDGMENT: Considered grossly intact in the absence of alcohol or cannabis use. RESULTS OF TESTING Imaging: None. Laboratory data: See above. CONSULTATIONS None. TREATMENT Patient received medications, participated in individual and group therapy. HOSPITAL COURSE Patient remaining very calm, cooperative, polite throughout his stay. Alcohol withdrawal was treated to success with CIWA protocol and diazepam. Patient continued to improve and was ready for discharge to home. CONDITION OF PATIENT ON DISCHARGE Stable. Considered a minimal risk to himself or others, appropriate for outpatient management. DISPOSITION The patient was discharged to home. Patient would follow up with IOP and abstain from alcohol, given the crisis line should symptoms return. Patient would establish care with primary care provider as well and establish appointment time for hypertension and management of antiviral. Patient discharged on amlodipine 5 mg every a.m.; lisinopril 20 mg every a.m.; valacyclovir 500 mg once daily; folic acid 1000 mg daily; vitamin B 100 mg daily. Patient could use [id number] nicotine replacement for smoking cessation. Patient also given trazodone 50 to 150 mg p.o. at bedtime p.r.n. insomnia. MTDD
== END 2018-04-29 10:15 | disposition home or self-care (01) | DRG 897 ==
LOC: BHS 16:52
PROVIDERS: ADMIT Psychiatry & Neurology Psychiatry; ATTEND Psychiatry & Neurology Psychiatry
DX: F10.230 Alcohol dependence with withdrawal, uncomplicated (principal); F41.8 Other specified anxiety disorders; K21.9 Gastro-esophageal reflux disease without esophagitis; I10 Essential (primary) hypertension; E78.00 Pure hypercholesterolemia, unspecified; F12.90 Cannabis use, unspecified, uncomplicated; Y90.0 Blood alcohol level of less than 20 mg/100 ml; Z62.810 Personal history of physical and sexual abuse in childhood; Z88.2 Allergy status to sulfonamides; Z23 Encounter for immunization
CPT/HCPCS: 90674

== ENCOUNTER 2018-08-19 11:35 | Emergency (ER) | payer MEDICARE, MEDICAID ==
[~2018-08-19 11:35] MED LIST changes: +AMLO-101 PO; +AMLO-125 PO; +FOLI-68 PO; +MULT-859 PO; +NICO-218 TD; +NICO1PAT88 TD; +RIVA15TA PO; +SCOP1PAT16 TD; +THIA100T62 PO; +VALA500T63 PO
--- NOTE | 2018-08-19 11:46 | ER Report ---
History and Physical Time Seen By MD: 11:46 HPI/ROS CHIEF COMPLAINT: Alcohol detox HISTORY OF PRESENT ILLNESS: This is a 53-year-old male who presents to emergency department for alcohol detox. Patient has had an on and off history of alcohol a buse, has been in the emergency department and admitted to the behavioral health unit for alcohol detox, patient states that he's been doing well over the last month has been clean then this weekend he decided to consume large quantities of vodka. Patient states the last drink he had was last night, not entirely sure how much she actually drink. Patient is very tearful, these had nausea and vomiting. Diarrhea. Is quite tremulous, tachycardic, no hallucinations, no fevers or chills. No chest pain or shortness breath. The patient is requesting detox in the behavioral health unit. REVIEW OF SYSTEMS: Constitutional: No fever, no chills. Eyes: No discharge. ENT: No sore throat. Cardiovascular: No chest pain, no palpitations. Respiratory: No cough, no shortness of breath. Gastrointestinal: As above. Genitourinary: No hematuria. Musculoskeletal: No back pain. Skin: No rashes. Neurological: No headache. Psychological: As above. Allergies: Coded Allergies: Sulfa (Sulfonamide Antibiotics) (Verified Allergy, Severe, HIVES AND THROAT CLOSES, 04/27/18) Home Meds Active Scripts Nicotine (NICOTINE PATCH) 1 Each Patch.td24, 1 EACH TD DAILY, #30 PATCH.24H Prov:SANAM PENNINGTON [facility] 07/11/18 Rivaroxaban 15 Mg (XARELTO 15 MG) 15 Mg Tablet, 15 MG PO BID for 21 Days, #42 TAB Prov:SANAM PENNINGTON [employer] 07/11/18 Pantoprazole Sodium (PANTOPRAZOLE SODIUM) 40 Mg Tablet.dr, 1 TAB PO QDAY, #60 TAB.SR 6 Refills Prov:GEORGE HALL MD 06/20/18 Reported Medications Multivits,Ca,Minerals/Iron/Fa (THERA-M TABLET) 1 Each Tablet, 1 EACH PO DAILY 04/29/18 Amlodipine Besylate (NORVASC) 5 Mg Tablet, 1 TAB PO QDAY, TAB 04/29/18 Nicotine (NICODERM CQ) 1 Each Patch.td24, 1 EACH TD DAILY 04/29/18 Folic Acid (FOLIC ACID) 1 Mg Tablet, 1 MG PO QDAY, TAB 04/29/18 Lisinopril (LISINOPRIL) Unknown Strength Tablet, PO QDAY, TAB 04/24/18 Past Medical/Surgical History Patient has a past medical and surgical history of hypertension, smoking, pneumonia, tuberculosis exposure, GERD, left wrist surgery, wears glasses, history of alcohol abuse, depression, hernia repair, cyst on right hand, nilam ateral shoulder scopes. Reviewed Nurses Notes: Yes Hx Smoking: Yes (1ppd) Smoking Status: Heavy Tobacco Smoker Exposure to Second Hand Smoke?: Yes Hx Substance Use Disorder: No Hx Alcohol Use: Yes (1 month sober ) Constitutional Vital Sign - Last 24 Hours 08/19/18 08/19/18 12:10 13:54 Temp 98.6 98.2 Pulse 130 104 Resp 22 16 B/P (MAP) 138/96 139/74 (95) Pulse Ox 94 88 O2 Delivery Room Air Physical Exam General Appearance: The patient is alert, has no immediate need for airway protection and no signs of toxicity, very anxious and tearful. Eyes: Pupils equal and round no pallor or injection. ENT, Mouth: Mucous membranes are moist. Respiratory: There are no retractions, lungs are clear to auscultation. Cardiovascular: Regular rate and rhythm. Gastrointestinal: Abdomen is soft and non tender, no masses, bowel sounds normal. Neurological: Alert and oriented 4. Moving all extremities. Following all commands. No focal neuro deficits. Skin: Warm and dry, no rashes. Musculoskeletal: Neck is supple non tender. Extremities are nontender, nonswollen and have full range of motion. Psychological: Anxious, tearful, during hyperventilation, finding it difficult to sit in one spot, constantly moving, reaching hands however he is forthcoming with his request to go to behavioral health to detox from alcohol, patient states he is very ashamed. DIFFERENTIAL DIAGNOSIS: After history and physical exam differential diagnosis was considered for occult detox. Medical Decision Making Data Points Result Diagram: 08/19/18 1202 08/19/18 1202 Laboratory Hematology Test 08/19/18 11:44 08/19/18 12:02 Urine Color Yellow Urine Clarity Slightly-cloudy Urine pH 5.0 pH (4.8-9.5) Urine Specific [place] 1.018 Urine Protein 30 mg/dL (NEGATIVE) Urine Glucose (UA) Negative mg/dL (NEGATIVE) Urine Ketones 20 mg/dL (NEGATIVE) Urine Blood Negative (NEGATIVE) Urine Nitrite Negative (NEGATIVE) Urine Bilirubin Negative (NEGATIVE) Urine Urobilinogen Negative mg/dL (0.2-1.9) Urine Leukocyte Esterase Negative (NEGATIVE) Urine RBC None /HPF (0-2/HPF) Urine WBC None /HPF (0-5/HPF) Urine Squamous Epithelial Cells Few /LPF (</=FEW) Urine Bacteria Negative /HPF (NONE-FEW) Urine Hyaline Casts Many /LPF (NONE-FEW) Urine Mucus Few /HPF (NONE-FEW) Urine Opiates Screen Negative Urine Barbiturates Screen Negative Ur Tricyclic Antidepressants Screen Negative Urine Phencyclidine Screen Negative Urine Amphetamines Screen Negative Urine Benzodiazepines Screen Negative Urine Cocaine Screen Negative Urine Cannabinoids Screen Positive Red Blood Count 5.85 M/uL (4.00-5.60) Mean Corpuscular Volume 98.6 fL (80.0-96.0) Mean Corpuscular Hemoglobin 33.4 pg (26.0-33.0) Mean Corpuscular Hemoglobin Concent 33.8 g/dL (32.0-36.0) Red Cell Distribution Width 13.8 % (11.5-14.5) Mean Platelet Volume 7.1 fL (7.2-11.1) Neutrophils (%) (Auto) 77.5 % (39.4-72.5) Lymphocytes (%) (Auto) 12.4 % (17.6-49.6) Monocytes (%) (Auto) 9.8 % (4.1-12.4) Eosinophils (%) (Auto) 0.0 % (0.4-6.7) Basophils (%) (Auto) 0.3 % (0.3-1.4) Nucleated RBC Relative Count (auto) 0.1 /100WBC Neutrophils # (Auto) 6.9 K/uL (2.0-7.4) Lymphocytes # (Auto) 1.1 K/uL (1.3-3.6) Monocytes # (Auto) 0.9 K/uL (0.3-1.0) Eosinophils # (Auto) 0.0 K/uL (0.0-0.5) Basophils # (Auto) 0.0 K/uL (0.0-0.1) Nucleated RBC Absolute Count (auto) 0.01 K/uL Sodium Level 139 mmol/L (137-145) Potassium Level 4.6 mmol/L (3.5-5.0) Chloride Level 99 mmol/L (98-107) Carbon Dioxide Level 15 mmol/L (22-30) Blood Urea Nitrogen 26 mg/dl (9-21) Creatinine 1.60 mg/dl (0.66-1.25) Glomerular Filtration Rate Calc 45.8 Random Glucose 78 mg/dl (75-110) Calcium Level 9.4 mg/dl (8.4-10.2) Magnesium Level 1.8 mg/dl (1.7-2.2) Total Bilirubin 1.6 mg/dl (0.2-1.3) Aspartate Amino Transf (AST/SGOT) 89 U/L (0-35) Alanine Aminotransferase (ALT/SGPT) 84 U/L (0-56) Alkaline Phosphatase 71 U/L (0-126) Total Protein 8.6 g/dl (6.3-8.2) Albumin 5.3 g/dl (3.5-5.0) Salicylates Level < 10 mg/L Salicylate Last Dose Date unk Acetaminophen Level < 10 ug/ml Serum Alcohol 51 mg/dl Chemistry Test 08/19/18 11:44 08/19/18 12:02 Urine Color Yellow Urine Clarity Slightly-cloudy Urine pH 5.0 pH (4.8-9.5) Urine Specific [place] 1.018 Urine Protein 30 mg/dL (NEGATIVE) Urine Glucose (UA) Negative mg/dL (NEGATIVE) Urine Ketones 20 mg/dL (NEGATIVE) Urine Blood Negative (NEGATIVE) Urine Nitrite Negative (NEGATIVE) Urine Bilirubin Negative (NEGATIVE) Urine Urobilinogen Negative mg/dL (0.2-1.9) Urine Leukocyte Esterase Negative (NEGATIVE) Urine RBC None /HPF (0-2/HPF) Urine WBC None /HPF (0-5/HPF) Urine Squamous Epithelial Cells Few /LPF (</=FEW) Urine Bacteria Negative /HPF (NONE-FEW) Urine Hyaline Casts Many /LPF (NONE-FEW) Urine Mucus Few /HPF (NONE-FEW) Urine Opiates Screen Negative Urine Barbiturates Screen Negative Ur Tricyclic Antidepressants Screen Negative Urine Phencyclidine Screen Negative Urine Amphetamines Screen Negative Urine Benzodiazepines Screen Negative Urine Cocaine Screen Negative Urine Cannabinoids Screen Positive White Blood Count 8.9 k/uL (4.5-11.0) Red Blood Count 5.85 M/uL (4.00-5.60) Hemoglobin 19.5 g/dL (14.0-18.0) Hematocrit 57.7 % (42.0-52.0) Mean Corpuscular Volume 98.6 fL (80.0-96.0) Mean Corpuscular Hemoglobin 33.4 pg (26.0-33.0) Mean Corpuscular Hemoglobin Concent 33.8 g/dL (32.0-36.0) Red Cell Distribution Width 13.8 % (11.5-14.5) Platelet Count 276 K/uL (150-450) Mean Platelet Volume 7.1 fL (7.2-11.1) Neutrophils (%) (Auto) 77.5 % (39.4-72.5) Lymphocytes (%) (Auto) 12.4 % (17.6-49.6) Monocytes (%) (Auto) 9.8 % (4.1-12.4) Eosinophils (%) (Auto) 0.0 % (0.4-6.7) Basophils (%) (Auto) 0.3 % (0.3-1.4) Nucleated RBC Relative Count (auto) 0.1 /100WBC Neutrophils # (Auto) 6.9 K/uL (2.0-7.4) Lymphocytes # (Auto) 1.1 K/uL (1.3-3.6) Monocytes # (Auto) 0.9 K/uL (0.3-1.0) Eosinophils # (Auto) 0.0 K/uL (0.0-0.5) Basophils # (Auto) 0.0 K/uL (0.0-0.1) Nucleated RBC Absolute Count (auto) 0.01 K/uL Glomerular Filtration Rate Calc 45.8 Calcium Level 9.4 mg/dl (8.4-10.2) Magnesium Level 1.8 mg/dl (1.7-2.2) Total Bilirubin 1.6 mg/dl (0.2-1.3) Aspartate Amino Transf (AST/SGOT) 89 U/L (0-35) Alanine Aminotransferase (ALT/SGPT) 84 U/L (0-56) Alkaline Phosphatase 71 U/L (0-126) Total Protein 8.6 g/dl (6.3-8.2) Albumin 5.3 g/dl (3.5-5.0) Salicylates Level < 10 mg/L Salicylate Last Dose Date unk Acetaminophen Level < 10 ug/ml Serum Alcohol 51 mg/dl Toxicology Test 08/19/18 11:44 08/19/18 12:02 Urine Opiates Screen Negative Urine Barbiturates Screen Negative Ur Tricyclic Antidepressants Screen Negative Urine Phencyclidine Screen Negative Urine Amphetamines Screen Negative Urine Benzodiazepines Screen Negative Urine Cocaine Screen Negative Urine Cannabinoids Screen Positive Salicylates Level < 10 mg/L Salicylate Last Dose Date unk Acetaminophen Level < 10 ug/ml Serum Alcohol 51 mg/dl Urinalysis Test 08/19/18 11:44 Urine Color Yellow Urine Clarity Slightly-cloudy Urine pH 5.0 pH (4.8-9.5) Urine Specific [place] 1.018 Urine Protein 30 mg/dL (NEGATIVE) Urine Glucose (UA) Negative mg/dL (NEGATIVE) Urine Ketones 20 mg/dL (NEGATIVE) Urine Blood Negative (NEGATIVE) Urine Nitrite Negative (NEGATIVE) Urine Bilirubin Negative (NEGATIVE) Urine Urobilinogen Negative mg/dL (0.2-1.9) Urine Leukocyte Esterase Negative (NEGATIVE) Urine RBC None /HPF (0-2/HPF) Urine WBC None /HPF (0-5/HPF) Urine Squamous Epithelial Cells Few /LPF (</=FEW) Urine Bacteria Negative /HPF (NONE-FEW) Urine Hyaline Casts Many /LPF (NONE-FEW) Urine Mucus Few /HPF (NONE-FEW) ED Course/Re-evaluation Clinical Indication for ER IV: Hydration, IV Access ED Course The patient was admitted to room. A history and physical obtained. Differential diagnoses were considered. An IV was started. A CBC, CMP, psych panel were obtained. A banana bag was given. As the patient [place] was 20, he was given 1 mg IV Ativan, follow up with a 1 mg by mouth Ativan, subsequently began to improve, however he was still anxious and was given an additional 1 mg IV Ativan. Patient states feeling better, [place] with the patient arrived, he wanted to go to the behavioral health unit for alcohol detox, however after medications were administered and he became less anxious and feeling more comfortable he declined an admission to the hospital, I did talk to mom about his addiction and admitting to the behavioral health unit for help, he continued to decline, he states that he will go home, will not drink and will follow-up with his support crew including his sponsor, he was not driving, he had someone pick him up. Did not detain the patient as he was not suicidal or homicidal. Patient was discharged home. 08/19/2018 11:56:20 am CIWA score of 18. 08/19/2018 1:27:03 pm I did go back in to reassess the patient, he states he is feeling better and states he just "needed stabilization", he said he has no intention of drinking tonight and will get back on his program with his sponsor, he is declining an admission to the behavioral health unit, he is not suicidal or homicidal. I am still having one of the behavioral health techs come and speak with him. Decision to Disposition Date: Aug 19, 2018 Decision to Disposition Time: 13:48 Depart Departure Latest Vital Signs Vital Signs Date Time Temp Pulse Resp B/P (MAP) Pulse Ox O2 Delivery O2 Flow Rate FiO2 08/19/18 13:54 98.2 104 16 139/74 (95) 88 08/19/18 12:10 Room Air Impression: Primary Impression: Alcohol abuse Condition: Improved Disposition: HOME OR SELF-CARE Patient Instructions: Abuse of Alcohol (ED), Alcohol Dependence (ED) Additional Instructions: Please avoid alcohol, please follow-up with your sponsor. If you change your mind please return to emergency department for admission to the behavioral health unit. Drink plenty of water. Get plenty of rest. Return to the ER for any other concerns or worsening symptoms. ELISHA HORTA [employer] WORK[employer] Aug 19, 2018 11:46
[2018-08-19] MEDS ORDERED: THIAMINE HCL(*) 200 MG/2 ML IN 100 MG, FOLIC ACID(*) 50 MG/10 ML INJ 1 MG, MULTIVITAMIN... IV ONE (11:51)
[2018-08-19] MEDS ORDERED: LORazepam 2 MG/ML VIAL IM ONE (11:55)
[2018-08-19 12:10] LABS: PLATELET COUNT, AUTOMATED 276 K/uL (150-450)
[2018-08-19] MEDS ORDERED: THIAMINE HCL 200 MG/2 ML INJ ONE (12:10)
[2018-08-19] MEDS ORDERED: MAGNESIUM SUL 50% 1GM/2ML VIAL ONE (12:10)
[2018-08-19] MEDS ORDERED: FOLIC ACID 50 MG/10 ML 1ML INJ ONE (12:10)
[2018-08-19] MEDS ORDERED: ONDANSETRON 4 MG/2 ML VIAL IVP ONE (12:45)
[2018-08-19] MEDS ORDERED: LORazepam 2 MG/ML VIAL IVP ONE (13:00)
[2018-08-19] MEDS ORDERED: LORazepam 1 MG TAB PO ONE (13:00)
[2018-08-19 13:54] VITALS: BP 139/74
== END 2018-08-19 14:04 | disposition home or self-care (01) ==
LOC: ER 12:04
DX: F10.20 Alcohol dependence, uncomplicated (principal); I10 Essential (primary) hypertension
CPT/HCPCS: 80305; 81001; 83735; 84443; 85025; 96365; 96372; 96375; 99284; A9270; G0480; J2060; J2405; J3411; J3475; J7030; 80320; 80329; 82040; 82247; 82310; 82374; 82435; 82565; 82947; 84075; 84132; 84155; 84295; 84450; 84460; 84520

== ENCOUNTER 2018-11-03 15:25 | Emergency (ER) | payer MEDICARE, MEDICAID ==
[2018-11-03] MEDS ORDERED: THIAMINE HCL(*) 200 MG/2 ML IN 100 MG, FOLIC ACID(*) 50 MG/10 ML INJ 1 MG, MULTIVITAMIN... IV ONE (15:34)
[2018-11-03] MEDS ORDERED: ONDANSETRON 4 MG/2 ML VIAL IVP ONE (15:35)
[2018-11-03] MEDS ORDERED: RIVA15TA PO (15:37)
--- NOTE | 2018-11-03 15:42 | ER Report ---
History and Physical Time Seen By MD: 15:30 Hx. of Stated Complaint: GOING THROUGH ETOH WITHDRAWL, WANTING FLUIDS. HPI/ROS CHIEF COMPLAINT: alochol withdrawl HISTORY OF PRESENT ILLNESS: Pt has a hx of alcohol abuse. Pt states he has been sober for a few months but restarted drinking 3 days ago. Pts last drink was yesterday. PT states he is nauseated and is shaking. Pt does not want to be admitted but would like something for the nausea and shakes. Pt is also asking for fluids. Pt denies suicidal or homicidal. Pt states he has been able to stop drinking on his own in the past. Pt does not know why he fell off the wagon this time "it just happened". no new stressors. pt prefers not to speak to . REVIEW OF SYSTEMS: Constitutional: No fever, no chills. Eyes: No discharge. ENT: No sore throat. Cardiovascular: No chest pain, no palpitations. Respiratory: No cough, no shortness of breath. Gastrointestinal: No abdominal pain, no vomiting, + nausea Genitourinary: No hematuria. Musculoskeletal: No back pain. Skin: No rashes. Neurological: No headache, + shaking Allergies: Coded Allergies: Sulfa (Sulfonamide Antibiotics) (Verified Allergy, Severe, HIVES AND THROAT CLOSES, 04/27/18) Home Meds Active Scripts Pantoprazole Sodium (PANTOPRAZOLE SODIUM) 40 Mg Tablet.dr, 1 TAB PO QDAY, #60 TAB.SR 6 Refills Prov:GEORGE HALL MD 06/20/18 Reported Medications Rivaroxaban 15 Mg (XARELTO 15 MG) 15 Mg Tablet, 15 MG PO QDAY, TAB 11/03/18 Multivits,Ca,Minerals/Iron/Fa (THERA-M TABLET) 1 Each Tablet, 1 EACH PO DAILY 04/29/18 Amlodipine Besylate (NORVASC) 5 Mg Tablet, 1 TAB PO QDAY, TAB 04/29/18 Folic Acid (FOLIC ACID) 1 Mg Tablet, 1 MG PO QDAY, TAB 04/29/18 Lisinopril (LISINOPRIL) Unknown Strength Tablet, PO QDAY, TAB 04/24/18 Discontinued Reported Medications Nicotine (NICODERM CQ) 1 Each Patch.td24, 1 EACH TD DAILY 04/29/18 Discontinued Scripts Nicotine (NICOTINE PATCH) 1 Each Patch.td24, 1 EACH TD DAILY, #30 PATCH.24H Prov:SANAM PENNINGTON [employer] 07/11/18 Rivaroxaban 15 Mg (XARELTO 15 MG) 15 Mg Tablet, 15 MG PO BID for 21 Days, #42 TAB Prov:SANAM PENNINGTON [employer] 07/11/18 Past Medical/Surgical History Pmhx: htn, pe (on xeralto) , htn, alcohol abuse, pneumonia, tuberculosis, gerd, depression PShx: hernia repair Reviewed Nurses Notes: Yes Old Medical Records Reviewed: Yes Hx Smoking: Yes (1ppd) Smoking Status: Heavy Tobacco Smoker Exposure to Second Hand Smoke?: Yes Hx Substance Use Disorder: No Hx Alcohol Use: Yes (1 month sober ) Constitutional Vital Sign - Last 24 Hours 11/03/18 15:32 Temp 98.7 Pulse 87 Resp 16 B/P (MAP) 170/124 Pulse Ox 94 Physical Exam General Appearance: The patient is alert, has no immediate need for airway protection and no signs of toxicity. Eyes: Pupils equal and round no pallor or injection, EOMI ENT: no pharyngeal erythema or exudates, Mucous membranes are moist Respiratory: There are no retractions, lungs are clear to auscultation. Cardiovascular: Regular rate and rhythm. pulses are equal and symmetrical Gastrointestinal: Abdomen is soft and non tender, no masses, bowel sounds normal, no guarding, no rigidity or rebound Neurological: Cranial nerves II-XII grossly intact, no sensory or motor loss, + tremor Skin: Warm and dry, no rashes. Musculoskeletal: Neck is supple non tender, no vertebral tenderness Extremities are nontender, nonswollen and have full range of motion. DIFFERENTIAL DIAGNOSIS: After history and physical exam differential diagnosis was considered for alcohol withdrawl, electrolyte abnl, dehydration Medical Decision Making Data Points Result Diagram: 11/03/18 1538 11/03/18 1538 Laboratory Hematology Test 11/03/18 15:30 11/03/18 15:38 Urine Opiates Screen Negative Urine Barbiturates Screen Negative Ur Tricyclic Antidepressants Screen Negative Urine Phencyclidine Screen Negative Urine Amphetamines Screen Negative Urine Benzodiazepines Screen Negative Urine Cocaine Screen Negative Urine Cannabinoids Screen Positive Red Blood Count 5.15 M/uL (4.00-5.60) Mean Corpuscular Volume 97.6 fL (80.0-96.0) Mean Corpuscular Hemoglobin 34.1 pg (26.0-33.0) Mean Corpuscular Hemoglobin Concent 34.9 g/dL (32.0-36.0) Red Cell Distribution Width 13.3 % (11.5-14.5) Mean Platelet Volume 7.4 fL (7.2-11.1) Neutrophils (%) (Auto) 69.5 % (39.4-72.5) Lymphocytes (%) (Auto) 19.2 % (17.6-49.6) Monocytes (%) (Auto) 9.0 % (4.1-12.4) Eosinophils (%) (Auto) 1.5 % (0.4-6.7) Basophils (%) (Auto) 0.8 % (0.3-1.4) Nucleated RBC Relative Count (auto) 0.0 /100WBC Neutrophils # (Auto) 4.9 K/uL (2.0-7.4) Lymphocytes # (Auto) 1.4 K/uL (1.3-3.6) Monocytes # (Auto) 0.6 K/uL (0.3-1.0) Eosinophils # (Auto) 0.1 K/uL (0.0-0.5) Basophils # (Auto) 0.1 K/uL (0.0-0.1) Nucleated RBC Absolute Count (auto) 0.00 K/uL Sodium Level 138 mmol/L (137-145) Potassium Level 3.4 mmol/L (3.5-5.0) Chloride Level 102 mmol/L (98-107) Carbon Dioxide Level 28 mmol/L (22-30) Blood Urea Nitrogen 13 mg/dl (9-21) Creatinine 0.90 mg/dl (0.66-1.25) Glomerular Filtration Rate Calc > 60.0 Random Glucose 101 mg/dl (75-110) Calcium Level 9.4 mg/dl (8.4-10.2) Magnesium Level 1.6 mg/dl (1.7-2.2) Total Bilirubin 0.8 mg/dl (0.2-1.3) Aspartate Amino Transf (AST/SGOT) 30 U/L (0-35) Alanine Aminotransferase (ALT/SGPT) 33 U/L (0-56) Alkaline Phosphatase 64 U/L (0-126) Total Protein 7.5 g/dl (6.3-8.2) Albumin 4.5 g/dl (3.5-5.0) Salicylates Level < 10 mg/L Salicylate Last Dose Date unknown Acetaminophen Level < 10 ug/ml Serum Alcohol < 10 mg/dl Chemistry Test 11/03/18 15:30 11/03/18 15:38 Urine Opiates Screen Negative Urine Barbiturates Screen Negative Ur Tricyclic Antidepressants Screen Negative Urine Phencyclidine Screen Negative Urine Amphetamines Screen Negative Urine Benzodiazepines Screen Negative Urine Cocaine Screen Negative Urine Cannabinoids Screen Positive White Blood Count 7.1 k/uL (4.5-11.0) Red Blood Count 5.15 M/uL (4.00-5.60) Hemoglobin 17.6 g/dL (14.0-18.0) Hematocrit 50.3 % (42.0-52.0) Mean Corpuscular Volume 97.6 fL (80.0-96.0) Mean Corpuscular Hemoglobin 34.1 pg (26.0-33.0) Mean Corpuscular Hemoglobin Concent 34.9 g/dL (32.0-36.0) Red Cell Distribution Width 13.3 % (11.5-14.5) Platelet Count 160 K/uL (150-450) Mean Platelet Volume 7.4 fL (7.2-11.1) Neutrophils (%) (Auto) 69.5 % (39.4-72.5) Lymphocytes (%) (Auto) 19.2 % (17.6-49.6) Monocytes (%) (Auto) 9.0 % (4.1-12.4) Eosinophils (%) (Auto) 1.5 % (0.4-6.7) Basophils (%) (Auto) 0.8 % (0.3-1.4) Nucleated RBC Relative Count (auto) 0.0 /100WBC Neutrophils # (Auto) 4.9 K/uL (2.0-7.4) Lymphocytes # (Auto) 1.4 K/uL (1.3-3.6) Monocytes # (Auto) 0.6 K/uL (0.3-1.0) Eosinophils # (Auto) 0.1 K/uL (0.0-0.5) Basophils # (Auto) 0.1 K/uL (0.0-0.1) Nucleated RBC Absolute Count (auto) 0.00 K/uL Glomerular Filtration Rate Calc > 60.0 Calcium Level 9.4 mg/dl (8.4-10.2) Magnesium Level 1.6 mg/dl (1.7-2.2) Total Bilirubin 0.8 mg/dl (0.2-1.3) Aspartate Amino Transf (AST/SGOT) 30 U/L (0-35) Alanine Aminotransferase (ALT/SGPT) 33 U/L (0-56) Alkaline Phosphatase 64 U/L (0-126) Total Protein 7.5 g/dl (6.3-8.2) Albumin 4.5 g/dl (3.5-5.0) Salicylates Level < 10 mg/L Salicylate Last Dose Date unknown Acetaminophen Level < 10 ug/ml Serum Alcohol < 10 mg/dl Toxicology Test 11/03/18 15:30 11/03/18 15:38 Urine Opiates Screen Negative Urine Barbiturates Screen Negative Ur Tricyclic Antidepressants Screen Negative Urine Phencyclidine Screen Negative Urine Amphetamines Screen Negative Urine Benzodiazepines Screen Negative Urine Cocaine Screen Negative Urine Cannabinoids Screen Positive Salicylates Level < 10 mg/L Salicylate Last Dose Date unknown Acetaminophen Level < 10 ug/ml Serum Alcohol < 10 mg/dl ED Course/Re-evaluation Clinical Indication for ER IV: Hydration, IV Access ED Course check labs, medicate with benzo and zofran 11/03/2018 4:12:03 pm Pts potassium and magnesium are low. Magnesium is being replaced via the banana bag. The potassium is replaced orally. Librium is come from pharmacy 11/03/2018 5:46:36 pm Pt feeling "much better". Pt feels he can go home. Will write for a few benzo to help with his detox at home. Pt was told to return if feeling unsafe or too sick Decision to Disposition Date: November 03, 2018 Decision to Disposition Time: 17:47 Depart Departure Latest Vital Signs Vital Signs Date Time Temp Pulse Resp B/P (MAP) Pulse Ox O2 Delivery O2 Flow Rate FiO2 11/03/18 15:32 98.7 87 16 170/124 94 Impression: Primary Impression: Alcohol withdrawal Additional Impressions: Hypomagnesemia Hypokalemia Condition: Improved Disposition: HOME OR SELF-CARE Patient Instructions: Alcohol Dependence (ED) Additional Instructions: If at anytime you do not feel safe please return. Ativan one every 8 hours as needed for the shaking with withdrawl. Problem Qualifiers Primary Impression: Alcohol withdrawal Complication of substance-induced condition: uncomplicated Qualified Codes: F10.230 - Alcohol dependence with withdrawal, uncomplicated LEYLA RUIZ DO November 03, 2018 15:42
[2018-11-03 15:49] LABS: PLATELET COUNT, AUTOMATED 160 K/uL (150-450)
[2018-11-03] MEDS ORDERED: LORazepam 2 MG/ML VIAL ONE (15:49)
[2018-11-03] MEDS ORDERED: POTASSIUM CHL 20 MEQ TABCR PO ONE (16:10)
[2018-11-03] MEDS ORDERED: MAGNESIUM SUL/D5W* 1 GM/100 ML 100 ML IVPB ONE (16:10)
[2018-11-03] MEDS ORDERED: LORA-1456 PO (17:49)
[2018-11-03 18:00] VITALS: BP 152/102
== END 2018-11-03 18:09 | disposition home or self-care (01) ==
LOC: ER 15:28
DX: F10.230 Alcohol dependence with withdrawal, uncomplicated (principal); E83.42 Hypomagnesemia; E87.6 Hypokalemia
CPT/HCPCS: 80305; 83735; 84443; 85025; 96365; 96375; 99284; A9270; G0480; J2405; J3411; J3475; J7030; 80320; 80329; 82040; 82247; 82310; 82374; 82435; 82565; 82947; 84075; 84132; 84155; 84295; 84450; 84460; 84520

== ENCOUNTER 2018-12-01 15:05 | Emergency (ER) | payer MEDICARE, MEDICAID ==
[~2018-12-01 15:05] MED LIST changes: +LORA-1456 PO
[2018-12-01] MEDS ORDERED: NS(*) 0.9% 1000 ML BAG 1,000 ML IV ONE (15:36)
[2018-12-01 15:52] LABS: PLATELET COUNT, AUTOMATED 160 K/uL (150-450)
--- NOTE | 2018-12-01 16:53 | ER Report ---
History and Physical Time Seen By MD: 15:05 Hx. of Stated Complaint: patient wanting to detox from alcohol HPI/ROS CHIEF COMPLAINT: Wanting detox HISTORY OF PRESENT ILLNESS: Patient is a 53-year-old male who presents the ED with complaint of wanting detox from alcohol. He states he has been drinking for the last 1-2 weeks. He states he drinks about one to two pints per day. He states that he has not had much issue with withdrawal the past. He has not had withdrawal seizures. He states that he was able to detox at home about a month ago using some and the diazepam but states he is on able to do that this time. He has not noted any hallucinations, nausea, vomiting, shakiness at this point. REVIEW OF SYSTEMS: Constitutional: No fever, no chills. Eyes: No discharge. ENT: No sore throat. Cardiovascular: No chest pain, no palpitations. Respiratory: No cough, no shortness of breath. Gastrointestinal: No abdominal pain, no vomiting. Genitourinary: No hematuria. Musculoskeletal: No back pain. Skin: No rashes. Neurological: No headache. Allergies: Coded Allergies: Sulfa (Sulfonamide Antibiotics) (Verified Allergy, Severe, HIVES AND THROAT CLOSES, 12/01/18) Home Meds Active Scripts Pantoprazole Sodium (PANTOPRAZOLE SODIUM) 40 Mg Tablet.dr, 1 TAB PO QDAY, #60 TAB.SR 6 Refills Prov:GEORGE HALL MD 06/20/18 Reported Medications Rivaroxaban 15 Mg (XARELTO 15 MG) 15 Mg Tablet, 15 MG PO QDAY, TAB 11/03/18 Multivits,Ca,Minerals/Iron/Fa (THERA-M TABLET) 1 Each Tablet, 1 EACH PO DAILY 04/29/18 Amlodipine Besylate (NORVASC) 5 Mg Tablet, 1 TAB PO QDAY, TAB 04/29/18 Folic Acid (FOLIC ACID) 1 Mg Tablet, 1 MG PO QDAY, TAB 04/29/18 Lisinopril (LISINOPRIL) Unknown Strength Tablet, PO QDAY, TAB 04/24/18 Discontinued Scripts Lorazepam (ATIVAN) 1 Mg Tablet, 1 MG PO Q8H for Anxiety, #10 TAB Prov:LEYLA RUIZ DO 11/03/18 Reviewed Nurses Notes: Yes Old Medical Records Reviewed: Yes Hx Smoking: Yes (1ppd) Smoking Status: Heavy Tobacco Smoker Exposure to Second Hand Smoke?: Yes Hx Substance Use Disorder: No Hx Alcohol Use: Yes (1 month sober ) Constitutional Vital Sign - Last 24 Hours 12/01/18 12/01/18 15:12 15:17 Resp 16 B/P (MAP) 179/108 Pulse Ox 85 O2 Delivery Room Air O2 Flow Rate 3.0 Physical Exam General Appearance: The patient is alert, has no immediate need for airway protection and no signs of toxicity. Patient appears to be in no acute distress. Eyes: Pupils equal and round no pallor or injection. EOMs are full bilaterally. ENT, Mouth: Mucous membranes are moist. Respiratory: There are no retractions, lungs are clear to auscultation. Cardiovascular: Regular rate and rhythm. Gastrointestinal: Abdomen is soft and non tender, no masses, bowel sounds normal. Neurological: Cranial nerves II through XII intact. Skin: Warm and dry, no rashes. Musculoskeletal: Neck is supple non tender. Extremities are nontender, nonswollen and have full range of motion. Medical Decision Making Data Points Result Diagram: 12/01/18 1518 12/01/18 1518 Laboratory Hematology Test 12/01/18 15:08 12/01/18 15:18 Urine Color Yellow Urine Clarity Clear Urine pH 6.0 pH (4.8-9.5) Urine Specific [place] 1.025 Urine Protein 100 mg/dL (NEGATIVE) Urine Glucose (UA) Negative mg/dL (NEGATIVE) Urine Ketones 40 mg/dL (NEGATIVE) Urine Blood Moderate (NEGATIVE) Urine Nitrite Negative (NEGATIVE) Urine Bilirubin Negative (NEGATIVE) Urine Urobilinogen 0.2 mg/dL (0.2-1.9) Urine Leukocyte Esterase Negative (NEGATIVE) Urine RBC 3 /HPF (0-2/HPF) Urine WBC 1 /HPF (0-5/HPF) Urine Squamous Epithelial Cells None /LPF (</=FEW) Urine Bacteria Negative /HPF (NONE-FEW) Urine Hyaline Casts Few /LPF (NONE-FEW) Urine Mucus Few /HPF (NONE-FEW) Urine Opiates Screen Negative Urine Barbiturates Screen Negative Ur Tricyclic Antidepressants Screen Negative Urine Phencyclidine Screen Negative Urine Amphetamines Screen Negative Urine Benzodiazepines Screen Negative Urine Cocaine Screen Negative Urine Cannabinoids Screen Positive Red Blood Count 5.45 M/uL (4.00-5.60) Mean Corpuscular Volume 99.6 fL (80.0-96.0) Mean Corpuscular Hemoglobin 34.4 pg (26.0-33.0) Mean Corpuscular Hemoglobin Concent 34.5 g/dL (32.0-36.0) Red Cell Distribution Width 13.7 % (11.5-14.5) Mean Platelet Volume 7.4 fL (7.2-11.1) Neutrophils (%) (Auto) 60.4 % (39.4-72.5) Lymphocytes (%) (Auto) 30.5 % (17.6-49.6) Monocytes (%) (Auto) 7.7 % (4.1-12.4) Eosinophils (%) (Auto) 0.7 % (0.4-6.7) Basophils (%) (Auto) 0.7 % (0.3-1.4) Nucleated RBC Relative Count (auto) 0.1 /100WBC Neutrophils # (Auto) 4.6 K/uL (2.0-7.4) Lymphocytes # (Auto) 2.3 K/uL (1.3-3.6) Monocytes # (Auto) 0.6 K/uL (0.3-1.0) Eosinophils # (Auto) 0.1 K/uL (0.0-0.5) Basophils # (Auto) 0.1 K/uL (0.0-0.1) Nucleated RBC Absolute Count (auto) 0.00 K/uL Sodium Level 141 mmol/L (137-145) Potassium Level 4.5 mmol/L (3.5-5.0) Chloride Level 103 mmol/L (98-107) Carbon Dioxide Level 23 mmol/L (22-30) Blood Urea Nitrogen 12 mg/dl (9-21) Creatinine 1.00 mg/dl (0.66-1.25) Glomerular Filtration Rate Calc > 60.0 Random Glucose 88 mg/dl (75-110) Calcium Level 9.0 mg/dl (8.4-10.2) Magnesium Level 1.7 mg/dl (1.7-2.2) Total Bilirubin 1.2 mg/dl (0.2-1.3) Aspartate Amino Transf (AST/SGOT) 52 U/L (0-35) Alanine Aminotransferase (ALT/SGPT) 52 U/L (0-56) Alkaline Phosphatase 85 U/L (0-126) Total Protein 7.8 g/dl (6.3-8.2) Albumin 4.7 g/dl (3.5-5.0) Salicylates Level < 10 mg/L Salicylate Last Dose Date Unk Acetaminophen Level < 10 ug/ml Serum Alcohol 338 mg/dl Chemistry Test 12/01/18 15:08 12/01/18 15:18 Urine Color Yellow Urine Clarity Clear Urine pH 6.0 pH (4.8-9.5) Urine Specific [place] 1.025 Urine Protein 100 mg/dL (NEGATIVE) Urine Glucose (UA) Negative mg/dL (NEGATIVE) Urine Ketones 40 mg/dL (NEGATIVE) Urine Blood Moderate (NEGATIVE) Urine Nitrite Negative (NEGATIVE) Urine Bilirubin Negative (NEGATIVE) Urine Urobilinogen 0.2 mg/dL (0.2-1.9) Urine Leukocyte Esterase Negative (NEGATIVE) Urine RBC 3 /HPF (0-2/HPF) Urine WBC 1 /HPF (0-5/HPF) Urine Squamous Epithelial Cells None /LPF (</=FEW) Urine Bacteria Negative /HPF (NONE-FEW) Urine Hyaline Casts Few /LPF (NONE-FEW) Urine Mucus Few /HPF (NONE-FEW) Urine Opiates Screen Negative Urine Barbiturates Screen Negative Ur Tricyclic Antidepressants Screen Negative Urine Phencyclidine Screen Negative Urine Amphetamines Screen Negative Urine Benzodiazepines Screen Negative Urine Cocaine Screen Negative Urine Cannabinoids Screen Positive White Blood Count 7.5 k/uL (4.5-11.0) Red Blood Count 5.45 M/uL (4.00-5.60) Hemoglobin 18.7 g/dL (14.0-18.0) Hematocrit 54.3 % (42.0-52.0) Mean Corpuscular Volume 99.6 fL (80.0-96.0) Mean Corpuscular Hemoglobin 34.4 pg (26.0-33.0) Mean Corpuscular Hemoglobin Concent 34.5 g/dL (32.0-36.0) Red Cell Distribution Width 13.7 % (11.5-14.5) Platelet Count 160 K/uL (150-450) Mean Platelet Volume 7.4 fL (7.2-11.1) Neutrophils (%) (Auto) 60.4 % (39.4-72.5) Lymphocytes (%) (Auto) 30.5 % (17.6-49.6) Monocytes (%) (Auto) 7.7 % (4.1-12.4) Eosinophils (%) (Auto) 0.7 % (0.4-6.7) Basophils (%) (Auto) 0.7 % (0.3-1.4) Nucleated RBC Relative Count (auto) 0.1 /100WBC Neutrophils # (Auto) 4.6 K/uL (2.0-7.4) Lymphocytes # (Auto) 2.3 K/uL (1.3-3.6) Monocytes # (Auto) 0.6 K/uL (0.3-1.0) Eosinophils # (Auto) 0.1 K/uL (0.0-0.5) Basophils # (Auto) 0.1 K/uL (0.0-0.1) Nucleated RBC Absolute Count (auto) 0.00 K/uL Glomerular Filtration Rate Calc > 60.0 Calcium Level 9.0 mg/dl (8.4-10.2) Magnesium Level 1.7 mg/dl (1.7-2.2) Total Bilirubin 1.2 mg/dl (0.2-1.3) Aspartate Amino Transf (AST/SGOT) 52 U/L (0-35) Alanine Aminotransferase (ALT/SGPT) 52 U/L (0-56) Alkaline Phosphatase 85 U/L (0-126) Total Protein 7.8 g/dl (6.3-8.2) Albumin 4.7 g/dl (3.5-5.0) Salicylates Level < 10 mg/L Salicylate Last Dose Date Unk Acetaminophen Level < 10 ug/ml Serum Alcohol 338 mg/dl Toxicology Test 12/01/18 15:08 12/01/18 15:18 Urine Opiates Screen Negative Urine Barbiturates Screen Negative Ur Tricyclic Antidepressants Screen Negative Urine Phencyclidine Screen Negative Urine Amphetamines Screen Negative Urine Benzodiazepines Screen Negative Urine Cocaine Screen Negative Urine Cannabinoids Screen Positive Salicylates Level < 10 mg/L Salicylate Last Dose Date Unk Acetaminophen Level < 10 ug/ml Serum Alcohol 338 mg/dl Urinalysis Test 12/01/18 15:08 Urine Color Yellow Urine Clarity Clear Urine pH 6.0 pH (4.8-9.5) Urine Specific [place] 1.025 Urine Protein 100 mg/dL (NEGATIVE) Urine Glucose (UA) Negative mg/dL (NEGATIVE) Urine Ketones 40 mg/dL (NEGATIVE) Urine Blood Moderate (NEGATIVE) Urine Nitrite Negative (NEGATIVE) Urine Bilirubin Negative (NEGATIVE) Urine Urobilinogen 0.2 mg/dL (0.2-1.9) Urine Leukocyte Esterase Negative (NEGATIVE) Urine RBC 3 /HPF (0-2/HPF) Urine WBC 1 /HPF (0-5/HPF) Urine Squamous Epithelial Cells None /LPF (</=FEW) Urine Bacteria Negative /HPF (NONE-FEW) Urine Hyaline Casts Few /LPF (NONE-FEW) Urine Mucus Few /HPF (NONE-FEW) ED Course/Re-evaluation ED Course Will obtain labs and IV hydration. 12/01/2018 4:56:10 pm - discussed patient with Dr. Cadet, Psychiatry, who will except patient for admission. Decision to Disposition Date: Dec 01, 2018 Decision to Disposition Time: 16:56 Depart Departure Latest Vital Signs Vital Signs Date Time Temp Pulse Resp B/P (MAP) Pulse Ox O2 Delivery O2 Flow Rate FiO2 12/01/18 15:17 3.0 12/01/18 15:12 16 179/108 85 Room Air Impression: Primary Impression: Alcohol intoxication Condition: Improved Disposition: XFER TO [facility] MD Consult Note: Dr. Cadet, Psychiatry Problem Qualifiers Primary Impression: Alcohol intoxication Complication of substance-induced condition: uncomplicated Qualified Codes: F10.920 - Alcohol use, unspecified with intoxication, uncomplicated JIM ZUÑIGA PA-C Dec 01, 2018 16:53
[2018-12-01] MEDS ORDERED: LORazepam 2 MG/ML VIAL IVP ONE (16:55)
[2018-12-01] MEDS ORDERED: ONDANSETRON 4 MG/2 ML VIAL IVP ONE (16:55)
[2018-12-01 17:00] VITALS: BP 146/101
[2018-12-02] MEDS ORDERED: VALA500T63 PO (11:07)
== END 2018-12-01 17:27 ==
LOC: ER 15:19
DX: F10.120 Alcohol abuse with intoxication, uncomplicated (principal); Y90.8 Blood alcohol level of 240 mg/100 ml or more
CPT/HCPCS: 80305; 81001; 83735; 84443; 85025; 96361; 96374; 96375; 99284; G0480; J2060; J2405; J7030; 80320; 80329; 82040; 82247; 82310; 82374; 82435; 82565; 82947; 84075; 84132; 84155; 84295; 84450; 84460; 84520

== ENCOUNTER 2018-12-01 16:52 | Inpatient (IN) | payer MEDICARE, MEDICAID ==
[~2018-12-01] VITALS: Ht 185.4 cm; Wt 96.6 kg
[2018-12-01] MEDS ORDERED: MAG HYD/AL HYD/SIMETH 30ML UDC PO PRN (17:20)
[2018-12-01] MEDS: NICOTINE 21 MG/24 HR PATCH TD SCH (17:58)
[2018-12-01 19:52] VITALS: BP 137/97
[2018-12-01 20:45] VITALS: BP 144/94
[2018-12-01] MEDS: DIAZEPAM 10 MG TAB PO PRN ×3 (20:49→22:47)
[2018-12-01 23:50] VITALS: BP 125/77
[2018-12-02 04:00] VITALS: BP 125/79
[2018-12-02] MEDS: DIAZEPAM 10 MG TAB PO PRN ×8 (05:14→22:58)
--- NOTE | 2018-12-02 06:02 | RADIOLOGY IMAGING REPORT ---
[place] [facility] [place]IENT NAME: Jonnie Junior : 1965 MR: [id number] V: [id number] EXAM DATE: ORDERING PHYSICIAN: LAMIN ELDER TECHNOLOGIST: Location: [facility] Patient: Jonnie Junior : 1965 Visit/Account:[id number] Date of Sevice: 12/02/2018 CHEST: Indication: Hypoxia. Technique: Frontal and lateral views were obtained. Comparison: 07/10/2018 Skeletal and soft tissue structures: There are stable mild degenerative changes in the spine. No acut e skeletal deformity is identified. Heart and mediastinum: Within normal limits. Lung joseph: Well-expanded and clear. Pleural spaces: Unremarkable. Impression: No acute process or significant change. Report Dictated By: Juwan Wylie MD at 12/02/2018 5:56 AM Report E-Signed By: Juwan Wylie MD at 12/02/2018 5:58 AM WSN:[id number]
[2018-12-02 06:30] LABS: PLATELET COUNT, AUTOMATED 113 K/uL (150-450)
[2018-12-02 08:35] VITALS: BP 122/98
[2018-12-02] MEDS: THIAMINE HCL 100 MG TAB PO SCH (09:19)
[2018-12-02] MEDS: FOLIC ACID 1 MG TAB PO SCH (09:20)
[2018-12-02] MEDS: MULTIVITAMINS PO SCH (09:20)
[2018-12-02] MEDS ORDERED: VALA500T63 PO (11:07)
[2018-12-02 13:29] VITALS: BP 132/88
[2018-12-02] MEDS ORDERED: IOPAMIDOL 76% 100 ML INFUS BTL 100 ML ONE (14:31)
[2018-12-02] MEDS ORDERED: NS(*) 0.9% 50 ML BAG 50 ML ONE (14:31)
--- NOTE | 2018-12-02 14:36 | Hospitalist Consultation ---
History of Present Illness Requesting Physician Angela Cadet Reason for Consult Hypoxia Chief Complaint Detox, [facility] History of Present Illness The patient is a 53 year old male with PMH significant for alcohol dependence, tobacco dependence and recent bilateral PEs (07/07) who presented to [facility] ER requesting to go to [facility] for detox. The patient had an inpatient stay at [facility] in June for pulmonary embolisms. He did have some hypercoaguable work up done at that time. He was discharged on Xarelto and oxygen. Per the discharge orders, he was to be on oxygen 09/01. The patient states he felt better after discharge and stopped the oxygen on his own and returned the concentrator. He also has a 36 pack year history of smoking. He continues to smoke. He says he has noticed that he wheezes at home and his daughter even commented that "his breathing sounded weird". He has not previously been on treatment for COPD. He denies recent fever or chills. He has not had an increase in cough. He has not felt particularly short of breath. Upon arrival to the ER yesterday, his O2 saturation was 83% on RA. History Problems: (1) Alcohol abuse Status: Resolved (2) Multiple pulmonary emboli Status: Resolved Comment: June 2018 (3) PTSD (post-traumatic stress disorder) Status: Chronic (4) HTN (hypertension) Status: Chronic (5) GERD (gastroesophageal reflux disease) Status: Chronic (6) Depression Status: Chronic (7) History of colon polyps Status: Chronic (8) Alcoholic gastritis Status: Resolved (9) Nicotine addiction Status: Chronic Home Meds Active Scripts Pantoprazole Sodium (PANTOPRAZOLE SODIUM) 40 Mg Tablet.dr, 1 TAB PO QDAY, #60 TAB.SR 6 Refills Prov:GEORGE HALL MD 06/20/18 Reported Medications Valacyclovir Hcl (VALACYCLOVIR) 500 Mg Tablet, 500 MG PO BID PRN for INFECTION 12/02/18 Rivaroxaban 15 Mg (XARELTO 15 MG) 15 Mg Tablet, 20 MG PO QDAY, TAB Take 20 mg daily with evening meal. 11/03/18 Multivits,Ca,Minerals/Iron/Fa (THERA-M TABLET) 1 Each Tablet, 1 EACH PO DAILY 04/29/18 Amlodipine Besylate (NORVASC) 5 Mg Tablet, 1 TAB PO QDAY, TAB 04/29/18 Folic Acid (FOLIC ACID) 1 Mg Tablet, 1 MG PO QDAY, TAB 04/29/18 Lisinopril (LISINOPRIL) Unknown Strength Tablet, 20 MG PO QDAY, TAB 04/24/18 Discontinued Scripts Lorazepam (ATIVAN) 1 Mg Tablet, 1 MG PO Q8H for Anxiety, #10 TAB Prov:LEYLA RUIZ V DO 11/03/18 Allergies: Coded Allergies: Sulfa (Sulfonamide Antibiotics) (Verified Allergy, Severe, HIVES AND THROAT CLOSES, 12/01/18) Patient History: FH: brain cancer Siblings x 12 FH: depression MOTHER, FH: lung cancer FATHER, MOTHER, FH: skin cancer Siblings x 12 FHx: alcoholism Siblings x 12 FHx: drug dependence Siblings x 12 Hx Smoking: Yes Smoking Status: Heavy Tobacco Smoker Exposure to Second Hand Smoke?: No Caffeine Intake: Tea Caffeine/Cups Per Day: 1 Hx Alcohol Use: Yes Alcohol Used: Liquor Alcohol Withdrawl Symptoms: Tremors, Sweating, Nausea/Vomiting Hx Substance Use Disorder: No Social Drug Use: Occasional Social Drugs: Marijuana Amount Of Social Drug/s Used: varied when younger History of IV Drug Use: No Review of Systems Constitutional: No Fever, No Chills Cardiovascular: No Chest Pain Respiratory: Wheezing; No Shortness of Breath, No Cough Psychiatric: Depression, Anxiety, Other (Alcohol dependence.) Exam Vital Signs Vital Signs Date Time Temp Pulse Resp B/P (MAP) Pulse Ox O2 Delivery O2 Flow Rate FiO2 12/02/18 15:49 91 Nasal Cannula 6.0 12/02/18 13:29 98.4 99 22 132/88 (103) General Appearance: Alert, Awake, No Acute Distress, Afebrile Neuro: No Gross deficits Cardiovascular: Regular Rate and Rhythm Respiratory: Other (Bibasilar wheezing without rales or rhonchi.) Extremities: Warm, Perfused, Other (No swelling, tenderness or edema.) Integumentary: Skin Intact without Lesion / Mass Psych: Appropriate Mood & Affect Medical Decision Making Data Points Result Diagram: 12/02/18 0612/02/18 06 Item Value Date Time Neutrophils (%) (Auto) 76.7 % H 12/02/18 06 Lymphocytes (%) (Auto) 16.5 % L 12/02/18 06 Monocytes (%) (Auto) 5.3 % 12/02/18 0611 Eosinophils (%) (Auto) 1.3 % 12/02/18 0611 Basophils (%) (Auto) 0.2 % L 12/02/18 0611 Nucleated RBC Relative Count (auto) 0.1 /100WBC 12/02/18 0611 Neutrophils # (Auto) 4.4 K/uL 12/02/18 0611 Lymphocytes # (Auto) 1.0 K/uL L 12/02/18610 Monocytes # (Auto) 0.3 K/uL 12/02/18 0611 Eosinophils # (Auto) 0.1 K/uL 12/02/18 0611 Basophils # (Auto) 0.0 K/uL 12/02/18 0611 Nucleated RBC Absolute Count (auto) 0.01 K/uL 12/02/1811 EKG / Imaging Imaging FACILITY: [facility] PATIENT NAME: Jonnie Junior : 1965 MR: [id number] V: [id number] EXAM DATE: ORDERING PHYSICIAN: MILAGROS BURGESS TECHNOLOGIST: Location: [facility] Patient: Jonnie Junior : 1965 Visit/Account:[id number] Date of Sevice: 12/02/[address] pulmonary angiogram with contrast. HISTORY: Worsening hypoxia, history of PE. COMPARISON: 07/10/2018. 3 mm thick and [address] images were obtained of the chest using 75 mL intravenous [id number]-370. 3-D SLAB MIP reconstruction images were obtained of the pulmonary arteries. One of the following dose optimization techniques was utilized in the performance of this exam: Automated exposure control; adjustment of the mA and/or kV according to the patient's size; or use of an iterative reconstruction technique. Specific details can be referenced in the facility's radiology CT exam operational policy. FINDINGS: The central pulmonary arteries are minimally enlarged. A small amount of air is present in the main pulmonary artery probably introduced during the contrast injection. Most of the pulmonary emboli have resolved compared to previous. Several synechiae remain within third and fourth order pulmonary artery branches supplying the upper and lower lobes bilaterally. No other filling defects are identified to suggest new pulmonary emboli. The coronary arteries are partially calcified. The thoracic aorta is normal in size. Several lymph nodes measuring less than 2 cm in diameter are scattered in the mediastinum, unchanged. The heart size is upper limits of normal. Streaky and patchy opacities are present in the lung bases bilaterally increased compared to previous. Bronchial narrowing is present in the lower lobes bilaterally in the areas of consolidation. No pneumothorax. No pleural fluid. Degenerative changes are present in the spine. The included portions of the upper abdomen are unremarkable. IMPRESSION: Resolving bilateral pulmonary embolism. Negative for new pulmonary emboli. Increased bibasilar lung consolidation. Report Dictated By: Patrick Seth MD at 12/02/2018 3:10 PM Report E-Signed By: Patrick Seth MD at 12/02/2018 3:24 PM [id number] Pre-Admit Course Medical Record Review: Yes Assessment and Plan Problems: (1) Hypoxia Status: Chronic Assessment & Plan: The patient most likely has COPD that has been untreated. He has bibasilar wheezing on exam. His CTA shows some bibasilar changes that the radiologist felt could be scarring versus infiltrate. There was no evidence of PE. The patient has a normal WBC and is afebrile. Will treat for exacerbation of COPD with scheduled Duonebs. Consider adding steroids if needed as well. He will need to start on skilled nursing case manager treatment for his COPD. Continue Xarelto 20mg daily. Time Spent on Plan of Care: < 30 min Copies to: GEORGE DEL CASTILLO MD ; Venous Thromboembolism Antithrombotics Is Pt On Any Antithrombotics?: Yes MILAGROS BURGESS MD Dec 02, 2018 14:36
--- NOTE | 2018-12-02 15:29 | RADIOLOGY IMAGING REPORT ---
FACILITY: [facility] PATIENT NAME: Jonnie Junior : 1965 MR: [id number] V: [id number] EXAM DATE: ORDERING PHYSICIAN: MILAGROS BURGESS TECHNOLOGIST: [place] [facility] [place] Jonnie Junior : 1965 Visit/Account:[id number] Date of Sevice: 12/02/[address] pulmonary angiogram with contrast. HISTORY: Worsening hypoxia, history of PE. COMPARISON: 07/10/2018. 3 mm thick and [address] images were obtained of the chest using 75 mL intravenous Isovue-3 70. 3-D SLAB MIP reconstruction images were obtained of the pulmonary arteries. One of the following dose optimization techniques was utilized in the performance of this exam: Automated exposure control ; adjustment of the mA and/or kV according to the patient's size; or use of an iterative reconstruct ion technique. Specific details can be referenced in the facility's radiology CT exam operational po licy. FINDINGS: The central pulmonary arteries are minimally enlarged. A small amount of air is present in the main p ulmonary artery probably introduced during the contrast injection. Most of the pulmonary emboli have resolved compared to previous. Several synechiae remain within third and fourth order pulmonary arter y branches supplying the upper and lower lobes bilaterally. No other filling defects are identified t o suggest new pulmonary emboli. The coronary arteries are partially calcified. The thoracic aorta is normal in size. Several lymph nodes measuring less than 2 cm in diameter are scattered in the mediast inum, unchanged. The heart size is upper limits of normal. Streaky and patchy opacities are present i n the lung bases bilaterally increased compared to previous. Bronchial narrowing is present in the lo wer lobes bilaterally in the areas of consolidation. No pneumothorax. No pleural fluid. Degenerative changes are present in the spine. The included portions of the upper abdomen are unremarkable. IMPRESSION: Resolving bilateral pulmonary embolism. Negative for new pulmonary emboli. Increased bibasilar lung consolidation. Report Dictated By: Patrick Seth MD at 12/02/2018 3:10 PM Report E-Signed By: Patrick Seth MD at 12/02/2018 3:24 PM [id number]
[2018-12-02] MEDS ORDERED: RIVAROXABAN 10 MG TAB PO SCH (17:00)
[2018-12-02 17:13] VITALS: BP 130/96
[2018-12-02] MEDS: NICOTINE 21 MG/24 HR PATCH TD SCH (17:25)
--- NOTE | 2018-12-02 17:42 | NUR ---
Wants to leave today. No understanding of the significant dose of Valium he has been given, and the need for oxygen to keep him from going into respiratory failure at this point. Believes we are making him a prisoner and that we will emergency detain him to keep him here longer. Patient was given an AMA form to complete. Dr. Badillo will assess patient in morning and make decision about his safety to discharge from the hospital.
[2018-12-02] MEDS: ALBUTEROL/IPRATROPIUM 3 ML NEB NEB SCH (17:49)
[2018-12-02 21:00] VITALS: BP 119/81
[2018-12-02 22:54] VITALS: BP 132/84
--- NOTE | 2018-12-03 01:29 | NUR ---
Pt. awake at this time. States he wants to leave now. It was explained that we could keep him here according to policy for 24 hours. Pt states he is being held a prisoner here. He is currently sating at 84%. we discussed the need to get oxygen for him to leave with tomorrow. He also refused anything to help him sleep until morning. Angela Helio [place] called, per pt request. Discussed the situation with her. Pt will remain here till am. This was told to him. pt asked for his clothing. It was explained to him he could not have anything with strings or a belt or shoes until discharge. Pt states he will stay up and wait until am. Refused to wear oxygen stating "I'm done with that". He can discuss his need to leave in the morning with Dr Alvarez and team. He was told that he would need to stay in his room until am as the rest of the unit is sleeping and all other areas are locked until am.
[2018-12-03] MEDS ORDERED: hydrOXYzine PAMOATE 25 MG CAP PO PRN (02:10)
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
--- NOTE | 2018-12-03 03:00 | NUR ---
Pt awake sitting up in bed looking at book with light on. Refusing to take medication to help him sleep. Refusing to wear oxygen. reviewed with pt the necessity to be wearing oxygen and the problems that can occur if not getting proper oxygen.
--- NOTE | 2018-12-03 04:00 | NUR ---
Pt resting with eyes closed. Not wearing oxygen. Encouraged to wear Oxygen
[2018-12-03] MEDS: ALBUTEROL/IPRATROPIUM 3 ML NEB NEB SCH (05:45)
[2018-12-03 06:31] LABS: PLATELET COUNT, AUTOMATED 106 K/uL (150-450)
[2018-12-03] MEDS: THIAMINE HCL 100 MG TAB PO SCH (08:09)
[2018-12-03] MEDS: MULTIVITAMINS PO SCH (08:10)
[2018-12-03] MEDS: FOLIC ACID 1 MG TAB PO SCH (08:10)
[2018-12-03] MEDS ORDERED: LISINOPRIL 20 MG TAB PO SCH (09:00)
[2018-12-03] MEDS ORDERED: amLODIPine BESYL(*) 5 MG TAB PO SCH (09:00)
[2018-12-03] MEDS ORDERED: PANTOPRAZOLE SOD 40 MG TABEC PO SCH (09:00)
[2018-12-03] MEDS ORDERED: THIA100T20 PO (09:11)
--- NOTE | 2018-12-04 09:11 | SCHAAF DISCHARGE ---
DATE OF ADMISSION: December 01, 2018 DATE OF DISCHARGE: Against Medical Advice - December 03, 2018 ATTENDING PHYSICIAN iGovanni Badillo MD The patient was seen in the a.m. of December 03, 2018 by this provider for note concerning this dictation at approximately 0900 hours. FINAL DIAGNOSES 1. Alcohol use disorder, severe. 2. Alcohol withdrawal considered not complete. 3. Probable post traumatic stress disorder. 4. Social problems related to chronic alcoholism. REASON FOR ADMISSION This is a fairly well known 53-year-old male who was last on the unit here in April of 2018 under similar circumstances. The patient has a long history of alcohol use. Please see H and P for further details. The patient has a history of being a less than fully accurate historian and less than compliant with treatment. The patient was admitted on a voluntary basis, requesting help with alcohol detox. The patient was administered diazepam according to [facility] protocol. Alcohol withdrawal was in the process of being treated to completion. The patient noted to wrote Against Medical Advice discharge letter on December 02, 2018. The patient again was seen in the a.m. of December 03, 2018. He denied any suicidal or homicidal ideation. Much effort was given to educate the patient on the hazards of leaving Against Medical Advice, concerning this patient specifically, respiratory depression if he were to relapse into alcohol use on top of long-acting diazepam that is currently in his system, combine with probable COPD. The patient is noted to have been prescribed oxygen at home, prior to admission which the patient is noncompliant with. The patient has stated he had no interest to avoid smoking cigarettes which he has smoked for many years. The patient also reported to some staff that he probably would drink again as well. The patient was calm and polite throughout interview on December 03, 2018 prior to AMA discharge. The patient showed no cognitive concerns and the patient again deciding to discharge Against Medical Advice. During the patient's stay, a consult was called to medical floor to evaluate the patient's shortness of breath. This seemed to improve after the initial alcohol intoxication resolved. Discussed with hospitalist at the time of discharge, they recommended the patient be placed on a bronchodilator as needed for shortness of breath. This was given at the time of discharge. The patient again less than accurate historian concerning his level of drinking and the time frame prior to this admission based on laboratory evidence. The patient also indicating he had an appointment at [facility]. When this was called he did not. The patient had denied any interest in going to any rehab program at this time. [facility] was called. The patient would be able to return there for continued outpatient treatment. Primary diagnosis at this time is alcoholism or severe alcohol use disorder. PHYSICAL EXAMINATION Please see emergency room note. Notable for an intoxicated 53-year-old male, low oxygen saturations requiring nasal cannula oxygen. Vital signs at the time of admission: Pulse 113, respiratory rate 16, blood pressure 179/108 and pulse oximetry 85% and low on room air. Vital signs at the time of discharge from [facility]: Temperature 98.0, pulse 78, respiratory rate 16 and pulse oximetry 87% and low on room air. LABORATORY DATA CBC notable for hemoglobin elevated at 18.7, hematocrit 54.3 and elevated, MCV 99.6 and elevated, MCH 34.4 and elevated. Chemistry panel notable for slight elevation in AST of 52 with a TSH of 1.24. Urinalysis notable for moderate urine blood, urine ketones present as well and urine protein present. Toxicology screen positive for cannabis. Serum alcohol level of 338 upon admission. On 12/03/18 repeat CBC noted MCV elevated at 101.8, MCH 33.8, platelet count low at 106, WBC low at 4.4. Chemistry panel notable for total bilirubin elevated at 2.1 and AST 36. MENTAL STATUS EXAMINATION GENERAL APPEARANCE, BEHAVIOR AND ATTITUDE: This is a well groomed 53-year-old male who appears stated age making good eye contact. No psychomotor agitation or retardation. The patient nontearful, interacting overall pleasantly. SPEECH: Within normal limits. Regular rate, rhythm, volume and tone. MOOD: Described as improved and good. AFFECT: Largely neutral, full at times and appropriate. THOUGHT PROCESSES: Appeared goal-directed. The patient deciding to discharge Against Medical Advice after briefly being on the unit for treatment of alcohol withdrawal which is not considered complete. The patient indicated an understanding of medical conditions including COPD, hematuria, elevated hepatic enzymes and bilirubin and patient indicated an understanding of the complications of continued smoking and alcohol use. The patient agreed to follow up appropriately with his outpatient providers including Dr. Barrow and [facility]. No loose associations or flight of ideas were present. THOUGHT CONTENT: Free of auditory or visual hallucinations, ideas of reference, thought broadcastings, delusions, obsessions or compulsions. The patient adamantly denying suicidal or homicidal ideation. SENSORIUM: Clear. COGNITION: Alert and oriented to person, place, time and situation. MEMORY: Immediate, recent and remote was considered intact. INTELLIGENCE: Average, based on interview and previous knowledge of this patient. INSIGHT AND JUDGMENT: The patient demonstrating long-term maladaptive stress coping mechanisms with further impairment based on substance use including nicotine, alcohol and cannabis. RESULTS OF TESTING Imaging: Please see electronic record. Laboratory data: See above. Psychological testing: Not done. CONSULTATIONS The patient was consulted by Dr. Jackson regarding shortness of breath. Please see electronic record concerning her note and spoke with Dr. Ward Jackson at time of discharge who recommended the patient be given a bronchodilator p.r.n. for shortness of breath. TREATMENT Patient received medications, participated in individual and group therapy. HOSPITAL COURSE The patient overall remained cooperative on the unit. Alcohol withdrawal was considerate [id number] in nature, requiring diazepam per [facility] protocol. The patient's alcohol withdrawal again was considered not complete at time of discharge. The patient noted to require nasal cannula oxygen as high as 6 liters briefly while on the unit. This is likely due to underlying COPD in this long-term smoker further exacerbated by use of respiratory depressing medication diazepam combine with acute alcohol intoxication at the time of admission. The patient again deciding to leave Against Medical Advice. He gave little assurance that he had any profound desire to stop nicotine. The patient stated he would continue to smoke cigarettes. The patient giving minimal indication that he had any desire to stop alcohol use as well. The patient overall remaining cooperative, but again appearing to be a less than accurate historian regarding may topics. CONDITION OF PATIENT ON DISCHARGE The patient discharging Against Medical Advice. He was able to understand and indicated an understanding of the risk versus benefits of Against Medical Advice discharge. He is considered a minimal risk to himself via any acute suicidal ideation. The patient continues to be a risk to himself through the use of substances and patient is not deemed a risk to others. DISPOSITION The patient was discharged to home Against Medical Advice. He agreed to follow up with outpatient providers at [facility] and outpatient medical providers. DISCHARGE MEDICATIONS 1. Protonix or equivalent 40 mg q. day. 2. Norvasc 5 mg q. day. 3. Lisinopril 20 mg q. day. 4. The patient was given an albuterol inhaler p.r.n. for shortness of breath. 5. The patient will remain on Xarelto 20 mg q. p.m. 6. Folic acid 1 mg q. day. 7. Thiamin 100 mg q. day. 8. Multivitamin daily as well. 9. The patient encouraged to remain on nicotine replacement over the counter in the absence of smoking. The risks, benefits and alternatives of the above Against Medical Advice discharge were discussed. The patient choosing to go forward with Against Medical Advice discharge. RUTHD
== END 2018-12-03 09:22 | disposition left against medical advice (07) | DRG 897 ==
LOC: BHS 16:52
PROVIDERS: ADMIT Nurse Practitioner Psychiatric/Mental Health; ATTEND Nurse Practitioner Psychiatric/Mental Health
DX: F10.230 Alcohol dependence with withdrawal, uncomplicated (principal); F43.12 Post-traumatic stress disorder, chronic; F17.210 Nicotine dependence, cigarettes, uncomplicated; I10 Essential (primary) hypertension; K21.9 Gastro-esophageal reflux disease without esophagitis; J44.9 Chronic obstructive pulmonary disease, unspecified; F32.9 Major depressive disorder, single episode, unspecified; R31.9 Hematuria, unspecified; T42.4X5A Adverse effect of benzodiazepines, initial encounter; Y90.8 Blood alcohol level of 240 mg/100 ml or more; Z53.29 Procedure and treatment not carried out because of patient's decision for other reasons; Z91.19 Patient's noncompliance with other medical treatment and regimen; Z81.8 Family history of other mental and behavioral disorders; Z88.2 Allergy status to sulfonamides; Z56.0 Unemployment, unspecified; Z62.810 Personal history of physical and sexual abuse in childhood; Z86.711 Personal history of pulmonary embolism
CPT/HCPCS: 36415; 71046; 71275; 82040; 82247; 82310; 82374; 82435; 82565; 82947; 84075; 84132; 84155; 84295; 84450; 84460; 84520; 85025; 94640; J7050; Q0177; Q9967

== ENCOUNTER 2019-01-30 12:58 | Emergency (ER) | payer MEDICARE, MEDICAID ==
[~2019-01-30 12:58] MED LIST changes: +THIA100T20 PO
--- NOTE | 2019-01-30 13:31 | ER Report ---
History and Physical Time Seen By MD: 13:27 HPI/ROS CHIEF COMPLAINT: Alcohol detox HISTORY OF PRESENT ILLNESS: 53-year-old male patient present to emergency room with complaint of wanting to detox from alcohol. Patient states that he has been a heavy drinker for quite some time. He states he typically drinks approximately 1 L of vodka a day. He states his last drink was 6:00 this morning. Patient states these try detoxing the past. He states he's never had any seizures. He denies any hallucinations, either auditory or visual. REVIEW OF SYSTEMS: Respiratory: No cough, no dyspnea. Cardiovascular: No chest pain, no palpitations. Gastrointestinal: No vomiting, no abdominal pain. Musculoskeletal: No back pain. Allergies: Coded Allergies: Sulfa (Sulfonamide Antibiotics) (Verified Allergy, Severe, HIVES AND THROAT CLOSES, 01/30/19) Home Meds Active Scripts Pantoprazole Sodium (PANTOPRAZOLE SODIUM) 40 Mg Tablet.dr, 1 TAB PO QDAY, #60 TAB.SR 6 Refills Prov:GEORGE HALL MD 06/20/18 Reported Medications Thiamine Hcl (VITAMIN B-1) 100 Mg Tablet, 100 MG PO DAILY 12/03/18 Valacyclovir Hcl (VALACYCLOVIR) 500 Mg Tablet, 500 MG PO BID PRN for INFECTION 12/02/18 Rivaroxaban 15 Mg (XARELTO 15 MG) 15 Mg Tablet, 20 MG PO QDAY, TAB Take 20 mg daily with evening meal. 11/03/18 Multivits,Ca,Minerals/Iron/Fa (THERA-M TABLET) 1 Each Tablet, 1 EACH PO DAILY 04/29/18 Amlodipine Besylate (NORVASC) 5 Mg Tablet, 1 TAB PO QDAY, TAB 04/29/18 Folic Acid (FOLIC ACID) 1 Mg Tablet, 1 MG PO QDAY, TAB 04/29/18 Lisinopril (LISINOPRIL) Unknown Strength Tablet, 20 MG PO QDAY, TAB 04/24/18 Past Medical/Surgical History Patient has a past medical history of hypertension, cough, history of heavy smoking, pneumonia, TB exposure, pulmonary emboli, reflux, left wrist arthritis, alcohol abuse, depression, anxiety, PTSD. Patient has surgical history of hernia repair 10 years ago, cyst on right hand, bilateral shoulder surgery, Reviewed Nurses Notes: Yes Hx Smoking: Yes Smoking Status: Heavy Tobacco Smoker Exposure to Second Hand Smoke?: No Hx Substance Use Disorder: No Hx Alcohol Use: Yes Constitutional Vital Sign - Last 24 Hours 01/30/19 01/30/19 01/30/19 01/30/19 13:29 13:30 13:33 14:00 Temp 97.8 Pulse 111 110 91 Resp 18 B/P (MAP) 141/100 (114) 141/100 122/88 (99) Pulse Ox 89 90 91 89 O2 Delivery Room Air 01/30/19 14:30 Pulse 107 B/P (MAP) 133/81 (98) Pulse Ox 90 Physical Exam General Appearance: The patient is alert, has no immediate need for airway protection and no current signs of toxicity. Patient does smell of alcohol Respiratory: Chest is non tender, lungs are clear to auscultation. Cardiac: regular rate and rhythm Gastrointestinal: Abdomen is soft and non tender, no masses, bowel sounds normal. Musculoskeletal: Neck: Neck is supple and non tender. Extremities have full range of motion and are non tender. Skin: No rashes or lesions. DIFFERENTIAL DIAGNOSIS: After history and physical exam differential diagnosis was considered for apical detox, depression, PTSD. Medical Decision Making Data Points Result Diagram: 01/30/19 1341 01/30/19 1341 Laboratory Hematology Test 01/30/19 13:41 White Blood Count 5.8 k/uL (4.5-11.0) Red Blood Count 5.21 M/uL (4.00-5.60) Hemoglobin 18.1 g/dL (14.0-18.0) H Hematocrit 51.5 % (42.0-52.0) Mean Corpuscular Volume 98.9 fL (80.0-96.0) H Mean Corpuscular Hemoglobin 34.7 pg (26.0-33.0) H Mean Corpuscular Hemoglobin Concent 35.1 g/dL (32.0-36.0) Red Cell Distribution Width 12.8 % (11.5-14.5) Platelet Count 195 K/uL (150-450) Mean Platelet Volume 7.3 fL (7.2-11.1) Neutrophils (%) (Auto) 53.8 % (39.4-72.5) Lymphocytes (%) (Auto) 34.7 % (17.6-49.6) Monocytes (%) (Auto) 9.0 % (4.1-12.4) Eosinophils (%) (Auto) 1.7 % (0.4-6.7) Basophils (%) (Auto) 0.8 % (0.3-1.4) Nucleated RBC Relative Count (auto) 0.1 /100WBC Neutrophils # (Auto) 3.1 K/uL (2.0-7.4) Lymphocytes # (Auto) 2.0 K/uL (1.3-3.6) Monocytes # (Auto) 0.5 K/uL (0.3-1.0) Eosinophils # (Auto) 0.1 K/uL (0.0-0.5) Basophils # (Auto) 0.0 K/uL (0.0-0.1) Nucleated RBC Absolute Count (auto) 0.01 K/uL Chemistry Test 01/30/19 13:41 Sodium Level 140 mmol/L (137-145) Potassium Level 4.2 mmol/L (3.5-5.0) Chloride Level 105 mmol/L (98-107) Carbon Dioxide Level 23 mmol/L (22-30) Blood Urea Nitrogen 15 mg/dl (9-21) Creatinine 0.90 mg/dl (0.66-1.25) Glomerular Filtration Rate Calc > 60.0 Random Glucose 95 mg/dl (75-110) Calcium Level 9.1 mg/dl (8.4-10.2) Magnesium Level 2.0 mg/dl (1.7-2.2) Total Bilirubin 0.8 mg/dl (0.2-1.3) Aspartate Amino Transf (AST/SGOT) 33 U/L (0-35) Alanine Aminotransferase (ALT/SGPT) 44 U/L (0-56) Alkaline Phosphatase 48 U/L (0-126) Total Protein 7.8 g/dl (6.3-8.2) Albumin 4.6 g/dl (3.5-5.0) Thyroid Stimulating Hormone (TSH) 1.08 uIU/ml (0.46-4.68) Toxicology Test 01/30/19 13:26 01/30/19 13:41 Urine Opiates Screen Negative Urine Barbiturates Screen Negative Ur Tricyclic Antidepressants Screen Negative Urine Phencyclidine Screen Negative Urine Amphetamines Screen Negative Urine Benzodiazepines Screen Negative Urine Cocaine Screen Negative Urine Cannabinoids Screen Negative Salicylates Level < 10 mg/L Salicylate Last Dose Date unk Acetaminophen Level < 10 ug/ml Serum Alcohol 180 mg/dl Urinalysis Test 01/30/19 13:26 Urine Color Yellow Urine Clarity Clear Urine pH 5.0 pH (4.8-9.5) Urine Specific [place] 1.020 Urine Protein Negative mg/dL (NEGATIVE) Urine Glucose (UA) Negative mg/dL (NEGATIVE) Urine Ketones Negative mg/dL (NEGATIVE) Urine Blood Small (NEGATIVE) Urine Nitrite Negative (NEGATIVE) Urine Bilirubin Negative (NEGATIVE) Urine Urobilinogen Negative mg/dL (0.2-1.9) Urine Leukocyte Esterase Small (NEGATIVE) Urine RBC 2 /HPF (0-2/HPF) Urine WBC 1 /HPF (0-5/HPF) Urine Squamous Epithelial Cells None /LPF (</=FEW) Urine Bacteria Negative /HPF (NONE-FEW) Urine Mucus None /HPF (NONE-FEW) ED Course/Re-evaluation ED Course Patient was admitted to examine, history and physical were obtained. Differential diagnoses were considered. On examination lungs are clear, heart was regular, abdomen soft nontender. Lab work for a behavioral health admission was done. Labs were unremarkable. Patient did have an elevated hemoglobin of 18, elevated MCV of 98, MCH was elevated as well. I discussed the patient with Dr. Gilbert espitia, psychiatrist, who agreed to accept the patient for admission. I discussed this with the patient who verbalized understanding and agreement with plan. Decision to Disposition Date: Jan 30, 2019 Decision to Disposition Time: 14:52 Depart Departure Latest Vital Signs Vital Signs Date Time Temp Pulse Resp B/P (MAP) Pulse Ox O2 Delivery O2 Flow Rate FiO2 01/30/19 14:30 107 133/81 (98) 90 01/30/19 13:33 97.8 18 Room Air Impression: Primary Impression: Alcohol withdrawal Condition: Condition Unchanged Disposition: XFER TO [facility] Problem Qualifiers Primary Impression: Alcohol withdrawal Complication of substance-induced condition: uncomplicated Qualified Codes: F10.230 - Alcohol dependence with withdrawal, uncomplicated SARITHASHAWN FNP Jan 30, 2019 13:31
[2019-01-30] MEDS ORDERED: ONDANSETRON 4 MG/2 ML VIAL IVP ONE (13:55)
[2019-01-30] MEDS ORDERED: LORazepam 2 MG/ML VIAL IVP ONE (13:55)
[2019-01-30] MEDS ORDERED: THIAMINE HCL(*) 200 MG/2 ML IN 100 MG, FOLIC ACID(*) 50 MG/10 ML INJ 1 MG, MULTIVITAMIN... IV ONE (13:55)
[2019-01-30 13:57] LABS: PLATELET COUNT, AUTOMATED 195 K/uL (150-450)
[2019-01-30 14:30] VITALS: BP 133/81
[2019-01-30] MEDS ORDERED: NICOTINE 21 MG/24 HR PATCH TD ONE (15:10)
[2019-01-31] MEDS ORDERED: LISI20TA29 PO (15:01)
[2019-01-31] MEDS ORDERED: RIVA20TA PO (15:01)
[2019-01-31] MEDS ORDERED: CALC-856 PO (15:02)
== END 2019-01-30 15:39 ==
LOC: ER 14:12
DX: F10.230 Alcohol dependence with withdrawal, uncomplicated (principal); R79.89 Other specified abnormal findings of blood chemistry; I10 Essential (primary) hypertension
CPT/HCPCS: 80305; 81001; 83735; 84443; 85025; 96361; 96374; 96375; 99284; A9270; G0480; J2060; J2405; J3411; J3475; J7030; 80320; 80329; 82040; 82247; 82310; 82374; 82435; 82565; 82947; 84075; 84132; 84155; 84295; 84450; 84460; 84520

== ENCOUNTER 2019-01-30 15:18 | Inpatient (IN) | payer MEDICARE, MEDICAID ==
[~2019-01-30] VITALS: Ht 180.3 cm; Wt 99.8 kg
[2019-01-30] MEDS ORDERED: MAG HYD/AL HYD/SIMETH 30ML UDC PO PRN (15:35)
[2019-01-30] MEDS ORDERED: DIAZEPAM 10 MG TAB ONE (16:09)
[2019-01-30 16:14] VITALS: BP 122/80
[2019-01-30] MEDS: DIAZEPAM 10 MG TAB PO PRN ×2 (16:18→21:21)
[2019-01-30 17:14] VITALS: BP 130/87
[2019-01-30 21:04] VITALS: BP 114/74
[2019-01-31 05:00] VITALS: BP 130/92
[2019-01-31 09:00] VITALS: BP 122/78
[2019-01-31] MEDS ORDERED: RIVAROXABAN 10 MG TAB PO SCH (09:00)
[2019-01-31] MEDS ORDERED: valACYclovir HCL 500 MG TAB PO SCH (09:00)
[2019-01-31] MEDS ORDERED: FOLIC ACID 1 MG TAB PO SCH (09:00)
[2019-01-31] MEDS ORDERED: LISINOPRIL 20 MG TAB PO SCH (09:00)
[2019-01-31] MEDS ORDERED: PANTOPRAZOLE SOD 40 MG TABEC PO SCH (09:00)
[2019-01-31] MEDS ORDERED: NICOTINE 21 MG/24 HR PATCH TD SCH (09:00)
[2019-01-31] MEDS ORDERED: MULTIVITAMINS TAB PO SCH (09:00)
[2019-01-31] MEDS ORDERED: amLODIPine BESYL(*) 5 MG TAB PO SCH (09:00)
[2019-01-31] MEDS ORDERED: PATCH REMOVAL 1 EA TP SCH (09:00)
[2019-01-31] MEDS ORDERED: THIAMINE HCL 100 MG TAB PO SCH (09:00)
[2019-01-31] MEDS ORDERED: LISI20TA29 PO (15:01)
[2019-01-31] MEDS ORDERED: RIVA20TA PO (15:01)
[2019-01-31] MEDS ORDERED: CALC-856 PO (15:02)
--- NOTE | 2019-01-31 18:00 | NUR ---
1700 : Patient was given an AMA form to fill out as he expressed a desire to leave and discontinue the detox process. It was explained to the patient that the MD had 24 hours to review his request and determine if it was safe for him to leave. This was also explained before admission to the unit as is standard protocol. 1725 :This nurse approached patient in his room, to see if he was aware that dinner was here because he not come to the dinning room. Patient replied that he would not be eating, submitting to vital signs or assessments and that he would not accept any medication. This nurse explained that even though he had not been scoring on his CIWA so far today it was still important to monitor his symptoms to make sure the detox was complete. Patient states ,'I am symptom free". This nurse encouraged patient that if anything changed or if he would like to discuss the discharge process or any other topic that staff would be available. Currently patient is reading in his room.
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
[2019-02-01] MEDS ORDERED: NICO-218 TD (08:32)
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
== END 2019-02-01 09:00 | disposition home or self-care (01) | DRG 897 ==
LOC: BHS 15:18
PROVIDERS: ADMIT Psychiatry & Neurology Psychiatry; ATTEND Psychiatry & Neurology Psychiatry
DX: F10.230 Alcohol dependence with withdrawal, uncomplicated (principal); F43.12 Post-traumatic stress disorder, chronic; F41.8 Other specified anxiety disorders; K21.9 Gastro-esophageal reflux disease without esophagitis; Z62.810 Personal history of physical and sexual abuse in childhood; Y90.6 Blood alcohol level of 120-199 mg/100 ml; Z62.811 Personal history of psychological abuse in childhood; E78.5 Hyperlipidemia, unspecified; Z86.711 Personal history of pulmonary embolism